=== PATIENT | female | born 1990 | race African-American/Black ===

== ENCOUNTER 2016-08-14 23:03 | Emergency (ER) | payer OTHER ==
[2016-08-14 23:16] VITALS: RESP 18
[2016-08-15 00:30] LABS: Appearance,Urine Clear (Clear); Bilirubin,Urine Negative (Negative); Glucose,Urine (UA) Negative (Negative); Ketones,Urine Negative (Negative); Leukocyte Esterase,Urine Negative (Negative); Nitrite,Urine Negative (Negative); PH, Urine 6.5 (5.0-8.0); Protein,Urine Negative (Negative); Specific Gravity,Urine 1.018 (1.001-1.035); UA Billing (MACRO vs. MICRO) CHEM; Urobilinogen,Urine <2.0 mg/dL (<2.0)
--- NOTE | 2016-08-15 01:07 | ED ---
Abdominal Pain HPI - General Chief Complaint: Abdominal Pain Stated Complaint: Abd Pain Time Seen by Provider: 08/14/16 23:52 Source: patient Mode of arrival: ambulatory Limitations: no limitations - History of Present Illness MD Complaint: abdominal pain Onset/Timin -: days(s) Location: suprapubic Radiation: none Migration to: no migration Severity: mild Quality: cramping Consistency: now resolved, colicky Improves With: nothing Worsens With: nothing Associated Symptoms: denies other symptoms - Related Data Previous Rx's Medication Instructions Recorded Dicyclomine [Bentyl] 20 mg PO QID #15 tablet 08/15/16 Allergies Allergy/AdvReac Type Severity Reaction Status Date / Time No Known Allergies Allergy Verified 08/14/16 23:16 Review of Systems ROS Statement: Those systems with pertinent positive or pertinent negative responses have been documented in the HPI. ROS Other: All systems not noted in ROS Statement are negative. Constitutional: Denies: fever, chills Respiratory: Denies: cough, dyspnea Cardiovascular: Denies: chest pain, palpitations, edema Gastrointestinal: Reports: abdominal pain. Denies: nausea, vomiting, diarrhea, constipation, melena, hematochezia Genitourinary: Denies: dysuria, frequency, hematuria, discharge, dyspareunia Musculoskeletal: Denies: back pain Skin: Denies: rash Past Medical History Past Medical History: No Reported History Additional Past Medical History / Comment(s): CHLAMYDIA History of Any Multi-Drug Resistant Organisms: None Reported Additional Past Surgical History / Comment(s): D & C Past Psychological History: No Psychological Hx Reported Smoking Status: Current every day smoker Past Alcohol Use History: None Reported Past Drug Use History: Marijuana General Exam Limitations: no limitations General appearance: alert, in no apparent distress Eye exam: Present: normal appearance. Absent: scleral icterus, conjunctival injection Respiratory exam: Present: normal lung sounds bilaterally. Absent: respiratory distress, wheezes, rales, rhonchi, stridor Cardiovascular Exam: Present: regular rate, normal rhythm, normal heart sounds. Absent: systolic murmur, diastolic murmur, rubs, gallop GI/Abdominal exam: Present: soft, normal bowel sounds. Absent: distended, tenderness, guarding, rebound, rigid, mass, pulsatile mass, hernia Back exam: Present: normal inspection. Absent: CVA tenderness (R), CVA tenderness (L) Skin exam: Present: warm, dry, intact, normal color. Absent: rash Course Vital Signs 08/14/16 08/15/16 23:14 01:13 Temperature 98.2 F 97.5 F L Pulse Rate 98 71 Respiratory 18 18 Rate Blood Pressure 98/61 99/51 O2 Sat by Pulse 98 98 Oximetry Medical Decision Making - Medical Decision Making The patient's pain has resolved. Given the patient's history of chlamydia recommended having pelvic exam and sending cervical swabs to the laboratory. 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 Also discussed other tests including blood tests and imaging and as the patient has no pain in the exam is completely benign we'll hold off imaging. The patient also requested not having any blood specimens drawn. She states she will return if the pain recurs otherwise she is going to see her doctor. I discussed appropriate follow-up and also return parameters and all questions answered. - Lab Data Lab Results 08/15/16 08/15/16 Range/Units 00:19 00:19 Urine Color Yellow Urine Appearance Clear (Clear) Urine pH 6.5 (5.0-8.0) Ur Specific [place] 1.018 (1.001-1.035) Urine Protein Negative (Negative) Urine Glucose (UA) Negative (Negative) Urine Ketones Negative (Negative) Urine Blood Negative (Negative) Urine Nitrate Negative (Negative) Urine Bilirubin Negative (Negative) Urine Urobilinogen <2.0 (<2.0) mg/dL Ur Leukocyte Esterase Negative (Negative) Urine HCG, Qual Not Detected (Not Detectd) Disposition Clinical Impression: Abdominal pain Disposition: HOME SELF-CARE Condition: Good Instructions: Abdominal Pain (ED) Prescriptions: Dicyclomine [Bentyl] 20 mg PO QID #15 tablet Referrals: Cassy John MD [Primary Care Provider] - 1-2 days
[2016-08-15] MEDS ORDERED: DICYCLOMINE 20 MG TAB PO STA (01:09)
[2016-08-15 01:14] VITALS: BP 99/51; PULSE 71; TEMP 97.5
== END 2016-08-15 01:27 | disposition home or self-care (01) ==
LOC: EC 23:03
DX: R10.9 Unspecified abdominal pain (principal); F17.200 Nicotine dependence, unspecified, uncomplicated
CPT/HCPCS: 81003; 81025; 99284

== ENCOUNTER 2016-08-21 22:48 | Emergency (ER) | payer OTHER ==
[2016-08-21 22:56] VITALS: RESP 16
[2016-08-21] MEDS ORDERED: SODIUM CHLORIDE 0.9% 1,000 ML IV STA (23:13)
--- NOTE | 2016-08-21 23:17 | ED ---
Abdominal Pain HPI - General Chief Complaint: Abdominal Pain Stated Complaint: abd pain Time Seen by Provider: 08/21/16 23:00 Source: patient Mode of arrival: ambulatory Limitations: no limitations - History of Present Illness Initial Comments: 25-year-old female patient presents to emergency department today for a 5 day history of lower abdominal pain. Patient states that the pain is intermittent, and seems to come on more at the end of her work day and lasts for a few hours after. Patient describes the pain as sharp in nature. Patient ate she is nauseated with this but has not had any vomiting. Patient states she has had 3- 4 soft bowel movements daily for the last 4 days. Patient denies any chest pain , back pain, shortness of breath, dizziness, or weakness. He denies any fever, chills, hematuria, dysuria, urgency or frequency in urination. She denies any dark, bloody, or black stools. As any vaginal bleeding, discharge, or odor. Denies any sick contacts. - Related Data Home Medications Medication Instructions Recorded Confirmed Medroxyprogesterone Acetate 150 mg IM Q90D 08/21/16 08/21/16 [Depo-Provera] Allergies Allergy/AdvReac Type Severity Reaction Status Date / Time No Known Allergies Allergy Verified 08/21/16 23:18 Review of Systems ROS Statement: Those systems with pertinent positive or pertinent negative responses have been documented in the HPI. ROS Other: All systems not noted in ROS Statement are negative. Past Medical History Past Medical History: No Reported History Additional Past Medical History / Comment(s): CHLAMYDIA History of Any Multi-Drug Resistant Organisms: None Reported Additional Past Surgical History / Comment(s): D & C x 2 Past Psychological History: No Psychological Hx Reported Smoking Status: Current every day smoker Past Alcohol Use History: Occasional Past Drug Use History: Marijuana General Exam Limitations: no limitations General appearance: alert, in no apparent distress Head exam: Present: atraumatic, normocephalic, normal inspection Eye exam: Present: normal appearance, PERRL, EOMI. Absent: scleral icterus, conjunctival injection, periorbital swelling ENT exam: Present: normal exam, mucous membranes moist Neck exam: Present: normal inspection. Absent: tenderness, meningismus, lymphadenopathy Respiratory exam: Present: normal lung sounds bilaterally. Absent: respiratory distress, wheezes, rales, rhonchi, stridor Cardiovascular Exam: Present: regular rate, normal rhythm, normal heart sounds. Absent: systolic murmur, diastolic murmur, rubs, gallop, clicks GI/Abdominal exam: Present: soft, tenderness (Mildly tender over the lower abdomen, and mid epigastric area.), normal bowel sounds. Absent: distended, guarding, rebound, rigid, organomegaly, mass Back exam: Present: normal inspection. Absent: CVA tenderness (R), CVA tenderness (L) Neurological exam: Present: alert, oriented X3, CN II-XII intact Psychiatric exam: Present: normal affect, normal mood Skin exam: Present: warm, dry, intact, normal color. Absent: rash Course Vital Signs 08/21/16 22:52 Temperature 98.3 F Pulse Rate 84 Respiratory 16 Rate Blood Pressure 111/56 O2 Sat by Pulse 93 L Oximetry Medical Decision Making - Medical Decision Making 5-year-old female patient presented to emergency department for complaints of sharp lower abdominal pain. Blood work and urinalysis was performed which did not show any acute abnormalities. KUB of the abdomen revealed an obstructive bowel gas pattern and no acute abnormalities. Did inform patient that these tests were negative at this time, and did offer a pelvic examination for further evaluation and patient refused. Patient was educated by this is important and that it may provide answers for her pain. Again she declined this exam. Patient was also offered nausea and pain medications which she refused as well. During her visit here she also refused to keep the IV in place. Did discuss with patient that she should follow up as soon as possible with her family doctor for further evaluation. Patient understands that she can return for any worsening, new, or concerning symptoms. - Lab Data Result diagrams: 08/21/16 23:40 08/21/16 23:40 Lab Results 08/21/16 08/21/16 08/21/16 Range/Units 23:40 23:40 23:40 WBC 5.3 (3.8-10.6) k/uL RBC 4.72 (3.80-5.40) m/uL Hgb 14.1 (11.4-16.0) gm/dL Hct 42.3 (34.0-46.0) % MCV 89.6 (80.0-100.0) fL MCH 29.9 (25.0-35.0) pg MCHC 33.4 (31.0-37.0) g/dL RDW 13.7 (11.5-15.5) % Plt Count 198 (150-450) k/uL Neutrophils % 50 % Lymphocytes % 37 % Monocytes % 8 % Eosinophils % 3 % Basophils % 1 % Neutrophils # 2.6 (1.3-7.7) k/uL Lymphocytes # 2.0 (1.0-4.8) k/uL Monocytes # 0.4 (0-1.0) k/uL Eosinophils # 0.1 (0-0.7) k/uL Basophils # 0.0 (0-0.2) k/uL Sodium 138 (137-145) mmol/L Potassium 4.2 (3.5-5.1) mmol/L Chloride 102 (98-107) mmol/L Carbon Dioxide 26 (22-30) mmol/L Anion Gap 10 mmol/L BUN 13 (7-17) mg/dL Creatinine 0.85 (0.52-1.04) mg/dL Est GFR (MDRD) Af Amer >60 (>60 ml/min/1.73 sqM) Est GFR (MDRD) Non-Af >60 (>60 ml/min/1.73 sqM) Glucose 78 (74-99) mg/dL Calcium 9.5 (8.4-10.2) mg/dL Total Bilirubin 0.6 (0.2-1.3) mg/dL AST 17 (14-36) U/L ALT 26 (9-52) U/L Alkaline Phosphatase 55 (38-126) U/L Total Protein 7.2 (6.3-8.2) g/dL Albumin 4.1 (3.5-5.0) g/dL Amylase 101 (30-110) U/L Lipase 146 (23-300) U/L Urine Color Yellow Urine Appearance Clear (Clear) Urine pH 7.5 (5.0-8.0) Ur Specific [place] 1.020 (1.001-1.035) Urine Protein Trace H (Negative) Urine Glucose (UA) Negative (Negative) Urine Ketones Negative (Negative) Urine Blood Negative (Negative) Urine Nitrite Negative (Negative) Urine Bilirubin Negative (Negative) Urine Urobilinogen 2.0 (<2.0) mg/dL Ur Leukocyte Esterase Negative (Negative) Urine HCG, Qual (Not Detectd) 03/15/17 Range/Units 23:40 WBC (3.8-10.6) k/uL RBC (3.80-5.40) m/uL Hgb (11.4-16.0) gm/dL Hct (34.0-46.0) % MCV (80.0-100.0) fL MCH (25.0-35.0) pg MCHC (31.0-37.0) g/dL RDW (11.5-15.5) % Plt Count (150-450) k/uL Neutrophils % % Lymphocytes % % Monocytes % % Eosinophils % % Basophils % % Neutrophils # (1.3-7.7) k/uL Lymphocytes # (1.0-4.8) k/uL Monocytes # (0-1.0) k/uL Eosinophils # (0-0.7) k/uL Basophils # (0-0.2) k/uL Sodium (137-145) mmol/L Potassium (3.5-5.1) mmol/L Chloride (98-107) mmol/L Carbon Dioxide (22-30) mmol/L Anion Gap mmol/L BUN (7-17) mg/dL Creatinine (0.52-1.04) mg/dL Est GFR (MDRD) Af Amer (>60 ml/min/1.73 sqM) Est GFR (MDRD) Non-Af (>60 ml/min/1.73 sqM) Glucose (74-99) mg/dL Calcium (8.4-10.2) mg/dL Total Bilirubin (0.2-1.3) mg/dL AST (14-36) U/L ALT (9-52) U/L Alkaline Phosphatase (38-126) U/L Total Protein (6.3-8.2) g/dL Albumin (3.5-5.0) g/dL Amylase (30-110) U/L Lipase (23-300) U/L Urine Color Urine Appearance (Clear) Urine pH (5.0-8.0) Ur Specific [place] (1.001-1.035) Urine Protein (Negative) Urine Glucose (UA) (Negative) Urine Ketones (Negative) Urine Blood (Negative) Urine Nitrite (Negative) Urine Bilirubin (Negative) Urine Urobilinogen (<2.0) mg/dL Ur Leukocyte Esterase (Negative) Urine HCG, Qual Not Detected (Not Detectd) Disposition Clinical Impression: Abdominal pain Disposition: HOME SELF-CARE Condition: Stable Instructions: Abdominal Pain (ED) Additional Instructions: Follow-up with primary care provider as soon as possible for further evaluation. Return to emergency department for any new, worsening, or concerning symptoms. Referrals: Cassy John MD [Primary Care Provider] - 1-2 days Time of Disposition: 00:30
[2016-08-21 23:49] LABS: Appearance,Urine Clear (Clear); Basophils % (A) 1 %; Bilirubin,Urine Negative (Negative); CH 30.2; CHCM 33.8; Eosinophils # (A) 0.1 k/uL (0-0.7); Eosinophils % (A) 3 %; Glucose,Urine (UA) Negative (Negative); HCT 42.3 % (34.0-46.0); HDW 2.29; HGB 14.1 gm/dL (11.4-16.0); Ketones,Urine Negative (Negative); Leukocyte Esterase,Urine Negative (Negative); Luc # (Auto) 0.13; Luc % (Auto) 3; Lymphocytes % (A) 37 %; MCH 29.9 pg (25.0-35.0); MCHC 33.4 g/dL (31.0-37.0); MCV 89.6 fL (80.0-100.0); Mean Platelet Volume 7.3; Monocytes # (A) 0.4 k/uL (0-1.0); Monocytes % (A) 8 %; Neutrophils # (A) 2.6 k/uL (1.3-7.7); Neutrophils % (A) 50 %; Nitrite,Urine Negative (Negative); PH, Urine 7.5 (5.0-8.0); Protein,Urine Trace (Negative); RBC 4.72 m/uL (3.80-5.40); RDW 13.7 % (11.5-15.5); UA Billing (MACRO vs. MICRO) CHEM; WBC 5.3 k/uL (3.8-10.6); WBC (Perox) 5.08
[2016-08-21 23:57] LABS: ALT 26 U/L (9-52); AST 17 U/L (14-36); Alkaline Phosphatase 55 U/L (38-126); Amylase 101 U/L (30-110); Anion Gap 10 mmol/L; Blood Urea Nitrogen 13 mg/dL (7-17); Calcium 9.5 mg/dL (8.4-10.2); Carbon Dioxide 26 mmol/L (22-30); Chloride 102 mmol/L (98-107); Glucose 78 mg/dL (74-99); Non-African American GFR(MDRD) >60 (>60 ml/min/1.73 sqM); Potassium 4.2 mmol/L (3.5-5.1); Sodium 138 mmol/L (137-145); Total Bilirubin 0.6 mg/dL (0.2-1.3); Total Protein 7.2 g/dL (6.3-8.2)
[2016-08-22 00:46] VITALS: BP 100/59; PULSE 77; TEMP 98.2
--- NOTE | 2016-08-22 00:54 | XR ---
EXAM: XR Abdomen, 1 View. CLINICAL HISTORY: Reason: abdominal pain TECHNIQUE: Frontal supine view of the abdomen/pelvis. COMPARISON: Abdominal radiographs 05/21/16 FINDINGS: Lower thorax: No free air beneath the diaphragm. Imaged lung bases are clear. Gastrointestinal tract: No dilated, air-filled loops of bowel to suggest obstruction. Bones/joints: No acute fracture. IMPRESSION: Nonobstructive bowel gas pattern. No free air.
== END 2016-08-22 00:55 | disposition home or self-care (01) ==
LOC: EC 22:48
DX: R10.30 Lower abdominal pain, unspecified (principal); R10.13 Epigastric pain; R11.0 Nausea; F17.200 Nicotine dependence, unspecified, uncomplicated; Z79.3 Long term (current) use of hormonal contraceptives
CPT/HCPCS: 36415; 74000; 80053; 81003; 81025; 82150; 83690; 85025; 99284

== ENCOUNTER 2017-12-28 17:37 | Emergency (ER) | payer OTHER ==
[2017-12-28 17:47] VITALS: RESP 18
[2017-12-28] MEDS ORDERED: SODIUM CHLORIDE 0.9% 1,000 ML IV STA (18:01)
--- NOTE | 2017-12-28 18:20 | ED ---
General Adult HPI - General Chief complaint: Abdominal Pain Stated complaint: abd pain, 6wks preg Time Seen by Provider: 12/28/17 17:50 Source: patient, RN notes reviewed Mode of arrival: ambulatory Limitations: no limitations - History of Present Illness Initial comments: 27-year-old female presents to the emergency department for a chief complaint of abdominal pain times one week. Patient states the pain is constant and in the lower abdomen. Patient states the pain is worse on the left side. Patient is 6 weeks . She has not had an ultrasound. Patient denies any vaginal bleeding or discharge. Patient denies any nausea or vomiting. Patient last had a bowel movement today and it was of normal consistency. Patient denies any fevers or chills at home. Patient denies any concerns for sexually transmitted diseases. Patient has no other complaints at this time including shortness of breath, chest pain, abdominal pain, nausea or vomiting, headache, or visual changes. - Related Data Home Medications Medication Instructions Recorded Confirmed Medroxyprogesterone Acetate 150 mg IM Q90D 08/21/16 08/21/16 [Depo-Provera] Previous Rx's Medication Instructions Recorded Cephalexin [Keflex] 500 mg PO Q8HR 10 Days cap 12/28/17 Allergies Allergy/AdvReac Type Severity Reaction Status Date / Time No Known Allergies Allergy Verified 12/28/17 17:43 Review of Systems ROS Statement: Those systems with pertinent positive or pertinent negative responses have been documented in the HPI. ROS Other: All systems not noted in ROS Statement are negative. Past Medical History Past Medical History: No Reported History Additional Past Medical History / Comment(s): CHLAMYDIA History of Any Multi-Drug Resistant Organisms: None Reported Additional Past Surgical History / Comment(s): D & C x 2 Past Psychological History: No Psychological Hx Reported Smoking Status: Current some day smoker Past Alcohol Use History: None Reported, Occasional Past Drug Use History: None Reported General Exam Limitations: no limitations General appearance: alert, in no apparent distress Head exam: Present: atraumatic, normocephalic, normal inspection Eye exam: Present: normal appearance. Absent: scleral icterus, conjunctival injection Neck exam: Present: normal inspection, full ROM. Absent: tenderness, meningismus, lymphadenopathy Respiratory exam: Present: normal lung sounds bilaterally. Absent: respiratory distress, wheezes, rales, rhonchi, stridor Cardiovascular Exam: Present: regular rate, normal rhythm, normal heart sounds. Absent: systolic murmur, diastolic murmur, rubs, gallop, clicks GI/Abdominal exam: Present: soft, tenderness (mild LLQ tenderness as well as RLQ. worse on no tenderness epigastric, RUQ, or LUQ tenderness), normal bowel sounds. Absent: distended, guarding, rebound, rigid Course Vital Signs 12/28/17 12/28/17 17:43 20:03 Temperature 97.8 F Pulse Rate 77 72 Respiratory 18 18 Rate Blood Pressure 93/56 96/53 O2 Sat by Pulse 99 100 Oximetry Medical Decision Making - Medical Decision Making 27-year-old female presents to the emergency department for a chief complaint of lower abdominal pain times one week. Patient states she is 6 weeks . Patient has not had an intrauterine ultrasound. Patient last had a bowel movement earlier today. No vaginal discharge or bleeding. No fevers or chills at home. On exam patient has mild left and right lower quadrant tenderness. No suprapubic tenderness. No tenderness in the upper quadrants of the abdomen. No CVA tenderness. Labs within normal limits. UA shows rare bacteria patient will be treated with Keflex and urine will be cultured. Ultrasound shows viable intrauterine . The ultrasound gestational age is 6 weeks and 3 days. No Acute process seen. There is a presence of the subchorionic bleed versus implantation above gestational sac. This finding was discussed with the patient. On exam patient is feeling much better. She will be sent home on Keflex and Tylenol as well as repeat beta hCG in one to 2 days. Aware to return to the emergency Department if she has any worsening symptoms or bleeding. She will follow-up in one to 2 days. - Lab Data Result diagrams: 12/28/17 18:40 12/28/17 18:40 Lab Results 12/28/17 12/28/17 12/28/17 Range/Units 18:40 18:40 18:40 WBC 6.1 (3.8-10.6) k/uL RBC 4.66 (3.80-5.40) m/uL Hgb 13.5 (11.4-16.0) gm/dL Hct 40.1 (34.0-46.0) % MCV 86.0 (80.0-100.0) fL MCH 29.0 (25.0-35.0) pg MCHC 33.7 (31.0-37.0) g/dL RDW 13.3 (11.5-15.5) % Plt Count 223 (150-450) k/uL Neutrophils % 52 % Lymphocytes % 35 % Monocytes % 8 % Eosinophils % 3 % Basophils % 0 % Neutrophils # 3.2 (1.3-7.7) k/uL Lymphocytes # 2.2 (1.0-4.8) k/uL Monocytes # 0.5 (0-1.0) k/uL Eosinophils # 0.2 (0-0.7) k/uL Basophils # 0.0 (0-0.2) k/uL Sodium 135 L (137-145) mmol/L Potassium 4.1 (3.5-5.1) mmol/L Chloride 106 (98-107) mmol/L Carbon Dioxide 22 (22-30) mmol/L Anion Gap 7 mmol/L BUN 10 (7-17) mg/dL Creatinine 0.71 (0.52-1.04) mg/dL Est GFR (CKD-EPI)AfAm >90 (>60 ml/min/1.73 sqM) Est GFR (CKD-EPI)NonAf >90 (>60 ml/min/1.73 sqM) Glucose 79 (74-99) mg/dL Calcium 9.0 (8.4-10.2) mg/dL Total Bilirubin <0.1 L (0.2-1.3) mg/dL AST 15 (14-36) U/L ALT 21 (9-52) U/L Alkaline Phosphatase 63 (38-126) U/L Total Protein 6.6 (6.3-8.2) g/dL Albumin 3.9 (3.5-5.0) g/dL Amylase 86 (30-110) U/L Lipase 93 (23-300) U/L HCG, Quant 12588.5 mIU/mL Urine Color Light Yellow Urine Appearance Cloudy H (Clear) Urine pH 6.5 (5.0-8.0) Ur Specific [place] 1.013 (1.001-1.035) Urine Protein Negative (Negative) Urine Glucose (UA) Negative (Negative) Urine Ketones Negative (Negative) Urine Blood Negative (Negative) Urine Nitrite Negative (Negative) Urine Bilirubin Negative (Negative) Urine Urobilinogen <2.0 (<2.0) mg/dL Ur Leukocyte Esterase Negative (Negative) Urine RBC <1 (0-5) /hpf Urine WBC 2 (0-5) /hpf Ur Squamous Epith Cells 22 H (0-4) /hpf Urine Bacteria Rare H (None) /hpf Urine Mucus Rare H (None) /hpf Disposition Clinical Impression: Abdominal pain Disposition: HOME SELF-CARE Condition: Good Instructions: Abdominal Pain in (ED) Additional Instructions: Please take Keflex as directed. Please begin taking vitamins and Tylenol for pain. Repeat blood work in 2 days. Follow-up with OBGYN in 1-2 days. Prescriptions: Cephalexin [Keflex] 500 mg PO Q8HR 10 Days cap Is patient prescribed a controlled substance at d/c from ED?: No Referrals: Cassy John MD [Primary Care Provider] - 1-2 days Time of Disposition: 20:58
[2017-12-28] MEDS ORDERED: ACETAMINOPHEN TAB 500 MG TAB PO STA (18:49)
[2017-12-28 18:55] LABS: Appearance,Urine Cloudy (Clear); Bacteria,Urine Rare /hpf; Bilirubin,Urine Negative (Negative); Blood,Urine Negative (Negative); Color,Urine Light Yellow; Glucose,Urine (UA) Negative (Negative); Ketones,Urine Negative (Negative); Leukocyte Esterase,Urine Negative (Negative); Mucus,Urine Rare /hpf; Nitrite,Urine Negative (Negative); PH, Urine 6.5 (5.0-8.0); Protein,Urine Negative (Negative); RBC,Urine <1 /hpf (0-5); Specific Gravity,Urine 1.013 (1.001-1.035); Squamous Epithelial Cell,Urine 22 /hpf (0-4); Urobilinogen,Urine <2.0 mg/dL (<2.0); WBC,Urine 2 /hpf (0-5)
[2017-12-28 19:03] LABS: ALT 21 U/L (9-52); AST 15 U/L (14-36); Albumin 3.9 g/dL (3.5-5.0); Alkaline Phosphatase 63 U/L (38-126); Amylase 86 U/L (30-110); Anion Gap 7 mmol/L; Blood Urea Nitrogen 10 mg/dL (7-17); Carbon Dioxide 22 mmol/L (22-30); Chloride 106 mmol/L (98-107); Glucose 79 mg/dL (74-99); Lipase 93 U/L (23-300); Potassium 4.1 mmol/L (3.5-5.1); Sodium 135 mmol/L (137-145); Total Bilirubin <0.1 mg/dL (0.2-1.3); Total Protein 6.6 g/dL (6.3-8.2)
[2017-12-28 19:19] LABS: Basophils % (A) 0 %; Eosinophils # (A) 0.2 k/uL (0-0.7); Eosinophils % (A) 3 %; HCT 40.1 % (34.0-46.0); HGB 13.5 gm/dL (11.4-16.0); Lymphocytes # (A) 2.2 k/uL (1.0-4.8); Lymphocytes % (A) 35 %; MCHC 33.7 g/dL (31.0-37.0); Mean Platelet Volume 7.3; Monocytes # (A) 0.5 k/uL (0-1.0); Monocytes % (A) 8 %; Neutrophils # (A) 3.2 k/uL (1.3-7.7); Neutrophils % (A) 52 %; Platelet Count 223 k/uL (150-450); RBC 4.66 m/uL (3.80-5.40); RDW 13.3 % (11.5-15.5); WBC 6.1 k/uL (3.8-10.6)
--- NOTE | 2017-12-28 19:52 | US ---
EXAMINATION TYPE: Transabdominal DATE OF EXAM: 09/09/17 COMPARISON: NONE CLINICAL HISTORY: Pain. EXAM PERFORMED: Transabdominal (TA) EXAM MEASUREMENTS: GESTATIONAL AGE / DATING Physician Established: (6 weeks/3 days) EDC: 08/20/2018 Dates by LMP: (6 weeks/3 days) EDC: 08/20/2018 Dates by First Scan: No previous this is first scan Dates by Current Scan for: (5 weeks/6 days) EDC: 08/24/2018 MATERNAL ANATOMY Uterus: 11.0 x 6.6 x 7.3 cm; Anteverted, cervix wnl (3.5 cm) Right Ovary: 2.9 x 1.6 x 2.0 cm; Appears wnl slightly obscured by bowel gas Left Ovary: 2.3 x 1.8 x 2.3 cm; Appears wnl slightly obscured by bowel gas Post CDS / Adnexa: Appears wnl Presence of free fluid: No Presence of corpus luteal cyst: Not seen Presence of subchorionic bleed: bleed versus implantation above gest sac measuring 0.6 x 0.4 x 0.8 cm GESTATION / SURVEY CRL: 0.3 cm (5 weeks/6 days) Yolk Sac (normal less than 6mm): 2 mm Heart Rate: 106 bpm Rhythm: Normal IUP: Viable IUP Date of LMP: 11/09/2017 Beta HcG (if available): Not available at this time IMPRESSION: The ultrasound gestational age is 6 weeks and 3 days. No complicating process seen.
[2017-12-28 20:20] LABS: HCG,Quantitative Serum 76104.5 mIU/mL
[2017-12-28 21:33] VITALS: BP 97/54; PULSE 71; TEMP 98.1
== END 2017-12-28 21:33 | disposition home or self-care (01) ==
LOC: EC 17:37
DX: O99.89 Other specified diseases and conditions complicating pregnancy, childbirth and the puerperium (principal); R10.32 Left lower quadrant pain; O98.811 Other maternal infectious and parasitic diseases complicating pregnancy, first trimester; R82.71 Bacteriuria; O99.331 Smoking (tobacco) complicating pregnancy, first trimester; F17.200 Nicotine dependence, unspecified, uncomplicated; Z79.3 Long term (current) use of hormonal contraceptives; Z3A.01 Less than 8 weeks gestation of pregnancy
CPT/HCPCS: 36415; 76801; 80053; 81001; 82150; 83690; 84702; 85025; 87086; 96360; 99284

== ENCOUNTER → 2018-01-01 | Outpatient (CLI) | payer OTHER | END | disposition home or self-care (01) | LOC: LABWHC1 11:28 | PROVIDERS: ATTEND Physician Assistant Medical | DX: O99.89 Other specified diseases and conditions complicating pregnancy, childbirth and the puerperium (principal); R10.9 Unspecified abdominal pain; Z3A.00 Weeks of gestation of pregnancy not specified | CPT/HCPCS: 36415; 84702 ==

== ENCOUNTER → 2018-01-01 | Outpatient (CLI) | payer OTHER ==
--- NOTE | 2018-01-01 13:33 | US ---
EXAMINATION TYPE: Transabdominal DATE OF EXAM: 09/09/17 COMPARISON: 12/28/2017 CLINICAL HISTORY: Z36 CONFIRM DATES. EXAM PERFORMED: Transvaginal (TV) and Transabdominal (TA) supplemental tv for better visualization pole EXAM MEASUREMENTS: GESTATIONAL AGE / DATING Physician Established: (7 weeks/0 days) EDC: 08/20/2018 Dates by LMP: (7 weeks/0 days) EDC: 08/20/2018 Dates by First Scan: (6 weeks/3 days) EDC: 08/24/2018 Dates by Current Scan for: (7 weeks/0 days) EDC: 08/20/2018 MATERNAL ANATOMY Uterus: 9.9 x 5.9 x 7.4 cm Right Ovary: 2.1 x 2.0 x 1.6 Left Ovary: 2.5 x 1.5 x 1.6 Post CDS / Adnexa: wnl Presence of free fluid: no Presence of corpus luteal cyst: no Presence of subchorionic bleed: 0.6 cm smaller than 1 week ago GESTATION / SURVEY CRL: 0.7 (6weeks/4 days) MSD: 2.7 7weeks/3 days) Yolk Sac (normal less than 6mm): 2mm Heart Rate: 136 bpm Rhythm: Normal IUP: Viable IUP Date of LMP: 11/13/2017 Beta HcG (if available): na IMPRESSION: Single viable intrauterine .
== END | disposition home or self-care (01) ==
LOC: RADUSWWP 12:36
PROVIDERS: ATTEND Obstetrics & Gynecology
DX: Z36.9 Encounter for antenatal screening, unspecified (principal); Z3A.01 Less than 8 weeks gestation of pregnancy
CPT/HCPCS: 76801; 76817

== ENCOUNTER 2018-03-03 17:36 | Emergency (ER) | payer OTHER ==
[2018-03-03 17:44] VITALS: RESP 18; TEMP 98.2
[2018-03-03] MEDS ORDERED: SODIUM CHLORIDE 0.9% 1,000 ML IV STA (18:20)
--- NOTE | 2018-03-03 18:27 | ED ---
Abdominal Pain HPI - General Chief Complaint: Abdominal Pain Stated Complaint: abd pain, Time Seen by Provider: 03/03/18 18:07 Source: patient Mode of arrival: ambulatory Limitations: no limitations - History of Present Illness Initial Comments: 27-year-old female patient presents to the emergency department today for evaluation of right-sided flank pain and lower abdominal cramping. She states that symptoms started 2-3 days ago. Patient states she is 15 weeks . She follows outpatient with Dr. Burciaga. Patient is A2 with miscarriages at 8 weeks and 13 weeks. Patient denies any current vaginal bleeding or discharge. Denies any hematuria, dysuria, urinary frequency, urinary urgency. She denies any fevers or chills. Denies any history of flank pain, kidney stones, or frequent urinary tract infections. Patient reports she has also been having frequent nosebleeds over the last couple of months. She denies any trauma to the nose. Patient denies any recent shortness breath, chest pain, nausea, vomiting, diarrhea, constipation, numbness, tingling, dizziness, weakness, headache, visual changes, or any other complaints. - Related Data Home Medications Medication Instructions Recorded Confirmed Wnu-Bjsg-Idsep Acid 1 cap PO DAILY 03/03/18 03/03/18 [-U Capsule (formulary)] Allergies Allergy/AdvReac Type Severity Reaction Status Date / Time cephalexin [From Keflex] Allergy Itching Verified 03/03/18 17:52 Review of Systems ROS Statement: Those systems with pertinent positive or pertinent negative responses have been documented in the HPI. ROS Other: All systems not noted in ROS Statement are negative. Past Medical History Past Medical History: No Reported History Additional Past Medical History / Comment(s): CHLAMYDIA History of Any Multi-Drug Resistant Organisms: None Reported Additional Past Surgical History / Comment(s): D & C x 2 Past Psychological History: No Psychological Hx Reported Smoking Status: Current some day smoker Past Alcohol Use History: None Reported Past Drug Use History: None Reported General Exam Limitations: no limitations General appearance: alert, in no apparent distress, other (This is a well- developed, well-nourished adult female patient in no acute distress. Vital signs upon presentation are temperature 98.2F and pulse 94, respirations 18, blood pressure 97/59, pulse ox 99% on room air.) Eye exam: Present: normal appearance, PERRL, EOMI. Absent: scleral icterus, conjunctival injection, periorbital swelling ENT exam: Present: normal exam, normal oropharynx, mucous membranes moist Respiratory exam: Present: normal lung sounds bilaterally. Absent: respiratory distress, wheezes, rales, rhonchi, stridor Cardiovascular Exam: Present: regular rate, normal rhythm, normal heart sounds. Absent: systolic murmur, diastolic murmur, rubs, gallop, clicks GI/Abdominal exam: Present: soft, normal bowel sounds. Absent: distended, tenderness, guarding, rebound, rigid Back exam: Present: normal inspection. Absent: CVA tenderness (R), CVA tenderness (L) Neurological exam: Present: alert, oriented X3, CN II-XII intact Psychiatric exam: Present: normal affect, normal mood Skin exam: Present: warm, dry, intact, normal color. Absent: rash Course Vital Signs 03/03/18 03/03/18 17:38 20:44 Temperature 98.2 F Pulse Rate 94 75 Respiratory 18 18 Rate Blood Pressure 97/59 118/56 O2 Sat by Pulse 99 100 Oximetry Medical Decision Making - Medical Decision Making 27 year-old female patient presented to the emergency department today with complaints of lower abdominal cramping and right-sided back pain. Physical examination was relatively unremarkable. There is no abdominal tenderness. No CVA tenderness. Labs reviewed and were unremarkable. Urinalysis did have some white blood cells however it was contaminated specimen we did send this for culture. Ultrasound of the fetus was obtained and showed no acute abnormalities. Heart rate was 149. Did discuss findings and results with the patient. We did discuss a musculoskeletal cause of her back pain, patient did report that pain worsened with bending and lifting. 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 Return parameters were discussed in detail. She verbalizes understanding and agree with this plan. - Lab Data Result diagrams: 03/03/18 18:42 03/03/18 18:42 Lab Results 03/03/18 03/03/18 03/03/18 Range/Units 18:42 18:42 18:42 WBC 6.9 (3.8-10.6) k/uL RBC 3.83 (3.80-5.40) m/uL Hgb 11.3 L (11.4-16.0) gm/dL Hct 33.6 L (34.0-46.0) % MCV 87.6 (80.0-100.0) fL MCH 29.4 (25.0-35.0) pg MCHC 33.5 (31.0-37.0) g/dL RDW 13.7 (11.5-15.5) % Plt Count 207 (150-450) k/uL Neutrophils % 67 % Lymphocytes % 22 % Monocytes % 6 % Eosinophils % 4 % Basophils % 0 % Neutrophils # 4.6 (1.3-7.7) k/uL Lymphocytes # 1.5 (1.0-4.8) k/uL Monocytes # 0.4 (0-1.0) k/uL Eosinophils # 0.2 (0-0.7) k/uL Basophils # 0.0 (0-0.2) k/uL PT (9.0-12.0) sec INR (<1.2) APTT (22.0-30.0) sec Sodium 138 (137-145) mmol/L Potassium 4.1 (3.5-5.1) mmol/L Chloride 106 (98-107) mmol/L Carbon Dioxide 23 (22-30) mmol/L Anion Gap 9 mmol/L BUN 9 (7-17) mg/dL Creatinine 0.70 (0.52-1.04) mg/dL Est GFR (CKD-EPI)AfAm >90 (>60 ml/min/1.73 sqM) Est GFR (CKD-EPI)NonAf >90 (>60 ml/min/1.73 sqM) Glucose 75 (74-99) mg/dL Calcium 9.2 (8.4-10.2) mg/dL Total Bilirubin 0.1 L (0.2-1.3) mg/dL AST 64 H (14-36) U/L ALT 72 H (9-52) U/L Alkaline Phosphatase 56 (38-126) U/L Total Protein 7.0 (6.3-8.2) g/dL Albumin 3.8 (3.5-5.0) g/dL Amylase 77 (30-110) U/L Lipase 67 (23-300) U/L Urine Color Yellow Urine Appearance Turbid H (Clear) Urine pH 7.5 (5.0-8.0) Ur Specific Williamson 1.018 (1.001-1.035) Urine Protein Trace H (Negative) Urine Glucose (UA) Negative (Negative) Urine Ketones Negative (Negative) Urine Blood Negative (Negative) Urine Nitrite Negative (Negative) Urine Bilirubin Negative (Negative) Urine Urobilinogen <2.0 (<2.0) mg/dL Ur Leukocyte Esterase Negative (Negative) Urine WBC 7 H (0-5) /hpf Ur Squamous Epith Cells 14 H (0-4) /hpf Amorphous Sediment Few H (None) /hpf Urine Mucus Rare H (None) /hpf 03/03/18 Range/Units 18:42 WBC (3.8-10.6) k/uL RBC (3.80-5.40) m/uL Hgb (11.4-16.0) gm/dL Hct (34.0-46.0) % MCV (80.0-100.0) fL MCH (25.0-35.0) pg MCHC (31.0-37.0) g/dL RDW (11.5-15.5) % Plt Count (150-450) k/uL Neutrophils % % Lymphocytes % % Monocytes % % Eosinophils % % Basophils % % Neutrophils # (1.3-7.7) k/uL Lymphocytes # (1.0-4.8) k/uL Monocytes # (0-1.0) k/uL Eosinophils # (0-0.7) k/uL Basophils # (0-0.2) k/uL PT 9.5 (9.0-12.0) sec INR 1.0 (<1.2) APTT 26.0 (22.0-30.0) sec Sodium (137-145) mmol/L Potassium (3.5-5.1) mmol/L Chloride (98-107) mmol/L Carbon Dioxide (22-30) mmol/L Anion Gap mmol/L BUN (7-17) mg/dL Creatinine (0.52-1.04) mg/dL Est GFR (CKD-EPI)AfAm (>60 ml/min/1.73 sqM) Est GFR (CKD-EPI)NonAf (>60 ml/min/1.73 sqM) Glucose (74-99) mg/dL Calcium (8.4-10.2) mg/dL Total Bilirubin (0.2-1.3) mg/dL AST (14-36) U/L ALT (9-52) U/L Alkaline Phosphatase (38-126) U/L Total Protein (6.3-8.2) g/dL Albumin (3.5-5.0) g/dL Amylase (30-110) U/L Lipase (23-300) U/L Urine Color Urine Appearance (Clear) Urine pH (5.0-8.0) Ur Specific Williamson (1.001-1.035) Urine Protein (Negative) Urine Glucose (UA) (Negative) Urine Ketones (Negative) Urine Blood (Negative) Urine Nitrite (Negative) Urine Bilirubin (Negative) Urine Urobilinogen (<2.0) mg/dL Ur Leukocyte Esterase (Negative) Urine WBC (0-5) /hpf Ur Squamous Epith Cells (0-4) /hpf Amorphous Sediment (None) /hpf Urine Mucus (None) /hpf - Radiology Data Radiology results: report reviewed Ultrasound of the fetus was obtained. Report was reviewed in its entirety. Impression by Dr. Eugene Faith shows viable intrauterine measuring 16 weeks 1 day with an estimated date of delivery at 08/17/2018. Heart rate 149. Disposition Clinical Impression: Abdominal pain in , Back pain Disposition: HOME SELF-CARE Condition: Good Instructions: Abdominal Pain in (ED) Additional Instructions: Increase fluids. Apply icy hot to the painful areas. Use heating pad 20 minutes at a time at least 4 times daily. Do not take the ibuprofen prescribed by her dentist, it is safe to take Tylenol. Follow-up with her primary care physician for recheck in 1-2 days. Return here immediately for any new, worsening, or concerning symptoms. Is patient prescribed a controlled substance at d/c from ED?: No Referrals: Cassy John MD [Primary Care Provider] - 1-2 days Time of Disposition: 21:10
[2018-03-03 19:23] LABS: Basophils % (A) 0 %; Eosinophils # (A) 0.2 k/uL (0-0.7); Eosinophils % (A) 4 %; HCT 33.6 % (34.0-46.0); HGB 11.3 gm/dL (11.4-16.0); Lymphocytes # (A) 1.5 k/uL (1.0-4.8); Lymphocytes % (A) 22 %; MCH 29.4 pg (25.0-35.0); MCHC 33.5 g/dL (31.0-37.0); MCV 87.6 fL (80.0-100.0); Mean Platelet Volume 7.8; Monocytes # (A) 0.4 k/uL (0-1.0); Monocytes % (A) 6 %; Neutrophils # (A) 4.6 k/uL (1.3-7.7); Neutrophils % (A) 67 %; Platelet Count 207 k/uL (150-450); RBC 3.83 m/uL (3.80-5.40); RDW 13.7 % (11.5-15.5); WBC 6.9 k/uL (3.8-10.6)
[2018-03-03 19:28] LABS: ALT 72 U/L (9-52); AST 64 U/L (14-36); Albumin 3.8 g/dL (3.5-5.0); Alkaline Phosphatase 56 U/L (38-126); Amylase 77 U/L (30-110); Anion Gap 9 mmol/L; Blood Urea Nitrogen 9 mg/dL (7-17); Calcium 9.2 mg/dL (8.4-10.2); Carbon Dioxide 23 mmol/L (22-30); Chloride 106 mmol/L (98-107); Glucose 75 mg/dL (74-99); Lipase 67 U/L (23-300); Potassium 4.1 mmol/L (3.5-5.1); Prothrombin Time 9.5 sec (9.0-12.0); Sodium 138 mmol/L (137-145); Total Bilirubin 0.1 mg/dL (0.2-1.3)
[2018-03-03 19:40] LABS: Amorphous Sediment,Urine Few /hpf; Appearance,Urine Turbid (Clear); Bilirubin,Urine Negative (Negative); Blood,Urine Negative (Negative); Color,Urine Yellow; Glucose,Urine (UA) Negative (Negative); Ketones,Urine Negative (Negative); Leukocyte Esterase,Urine Negative (Negative); Mucus,Urine Rare /hpf; Nitrite,Urine Negative (Negative); PH, Urine 7.5 (5.0-8.0); Protein,Urine Trace (Negative); Specific Gravity,Urine 1.018 (1.001-1.035); Squamous Epithelial Cell,Urine 14 /hpf (0-4); Urobilinogen,Urine <2.0 mg/dL (<2.0); WBC,Urine 7 /hpf (0-5)
[2018-03-03 20:44] VITALS: BP 118/56; PULSE 75
--- NOTE | 2018-03-03 20:50 | US ---
EXAMINATION TYPE: US OB >= 14 wk fetus DATE OF EXAM: 03/03/2018 COMPARISON: None CLINICAL HISTORY: PainBack pain and cramping. TECHNIQUE: Transabdominal (TA) GESTATIONAL AGE / DATING Physician Established: (15 weeks/5 days) EDC: 08/20/2018 Dates by LMP: (15 weeks/5 days) EDC: 08/20/2018 Dates by First Scan: (6 weeks/3 days) EDC: 08/24/2018 Dates by Current Scan: (16 weeks/1 days) EDC: 08/17/2018 Beta HCG (if available): Not available at this time SURVEY IUP: Single PLACENTA: Posterior PREVIA: No Previa TK: 11.25 cm Normal CERVICAL LENGTH (transabdominal: norm > 3.0cm): 3.0 cm BIOMETRY PRESENTATION: Vertex LIE: Longitudinal BPD: 3.3 cm 16 weeks / 1 days HC: 12.2 cm 16 weeks / 1 days AC: 10.33 cm 16 weeks / 2 days FL: 1.83 cm 15 weeks / 3 days ESTIMATED WEIGHT IN GRAMS: 138.54 grams ESTIMATED WEIGHT IN LBS/OZ: 0 lbs. 5 oz. WEIGHT PERCENTAGE BASED ON ESTABLISHED DATES: 53% HC/AC: 1.18cm Normal FL/AC: 17.69 Normal HEART RATE: 149 bpm RHYTHM: Normal IMPRESSION: VIABLE IUP 16W 1D; MARCELO 08/17/2018; HR 149 BPM.
== END 2018-03-03 21:12 | disposition home or self-care (01) ==
LOC: EC 17:36
DX: O99.89 Other specified diseases and conditions complicating pregnancy, childbirth and the puerperium (principal); R10.30 Lower abdominal pain, unspecified; M54.9 Dorsalgia, unspecified; O99.332 Smoking (tobacco) complicating pregnancy, second trimester; F17.200 Nicotine dependence, unspecified, uncomplicated; Z3A.16 16 weeks gestation of pregnancy; Z88.1 Allergy status to other antibiotic agents
CPT/HCPCS: 36415; 76805; 80053; 81001; 82150; 83690; 85025; 85610; 85730; 87086; 96360; 96361; 99284

== ENCOUNTER → 2018-03-18 | Outpatient (CLI) | payer OTHER ==
[2018-03-19 10:55] LABS: Alpha Fetoprotein (M.O.M) 0.64; B-HCG (M.O.M.) 0.86; Gestational Age (days) 6; Human Chorionic Gonadotropin 17.6 IU/mL; Inhibin A (M.O.M.) 0.42; Maternal Age at EDD (Yrs) 26; Smoker Yes; Unconjugated Estriol (M.O.M.) 1.38
== END | disposition home or self-care (01) ==
LOC: LABWHC1 08:43
PROVIDERS: ATTEND Obstetrics & Gynecology
DX: Z34.82 Encounter for supervision of other normal pregnancy, second trimester (principal); Z3A.00 Weeks of gestation of pregnancy not specified
CPT/HCPCS: 36415; 82105; 82677; 84702; 86336

== ENCOUNTER 2018-03-24 08:35 | Emergency (ER) | payer OTHER ==
[2018-03-24 08:56] VITALS: TEMP 98.2
[2018-03-24 08:57] VITALS: RESP 18
[2018-03-24] MEDS ORDERED: DOCUSATE 283 MG/5 ML ENEMA RECTAL STA (09:45)
[2018-03-24] MEDS ORDERED: MAGNESIUM CITRATE 296 ML BOTTLE PO ONE (09:45)
--- NOTE | 2018-03-24 10:28 | ED ---
Abdominal Pain HPI - General Chief Complaint: Abdominal Pain Stated Complaint: constipated Time Seen by Provider: 03/24/18 09:06 Source: patient, RN notes reviewed, old records reviewed Mode of arrival: ambulatory Limitations: no limitations - History of Present Illness Initial Comments: This Patient is a 27-year-old female currently 18 weeks chief complaint of constipation. Patient has not had a bowel movement in the past 5-6 days. She reports she's been trying raisin bran and eating "junk food". Patient states that she is a G4 female. AGRICULTURAL SCIENTIST is Dr. Quan. - Related Data Home Medications Medication Instructions Recorded Confirmed Ujq-Kjun-Phjjo Acid 1 cap PO DAILY 03/03/18 03/24/18 [-U Capsule (formulary)] Ondansetron Odt [Zofran ODT] 4 mg PO TID PRN 03/24/18 03/24/18 Previous Rx's Medication Instructions Recorded Nitrofurantoin Monohyd/M-Cryst 100 mg PO Q12HR #14 cap 03/24/18 [Macrobid] Allergies Allergy/AdvReac Type Severity Reaction Status Date / Time cephalexin [From Keflex] Allergy Itching Verified 03/24/18 09:25 Review of Systems ROS Statement: Those systems with pertinent positive or pertinent negative responses have been documented in the HPI. ROS Other: All systems not noted in ROS Statement are negative. Past Medical History Past Medical History: No Reported History Additional Past Medical History / Comment(s): CHLAMYDIA History of Any Multi-Drug Resistant Organisms: None Reported Past Surgical History: Orthopedic Surgery Additional Past Surgical History / Comment(s): D & C x 2 Past Psychological History: No Psychological Hx Reported Smoking Status: Current every day smoker Past Alcohol Use History: None Reported Past Drug Use History: None Reported General Exam - General Exam Comments Initial Comments: 27-year-old female. Alert and oriented. No acute distress. Limitations: no limitations General appearance: alert, in no apparent distress Head exam: Present: atraumatic, normocephalic, normal inspection Eye exam: Present: normal appearance, PERRL, EOMI. Absent: scleral icterus, conjunctival injection, periorbital swelling ENT exam: Present: normal exam, mucous membranes moist Neck exam: Present: normal inspection. Absent: tenderness, meningismus, lymphadenopathy Respiratory exam: Present: normal lung sounds bilaterally. Absent: respiratory distress, wheezes, rales, rhonchi, stridor Cardiovascular Exam: Present: regular rate, normal rhythm, normal heart sounds. Absent: systolic murmur, diastolic murmur, rubs, gallop, clicks GI/Abdominal exam: Present: soft, normal bowel sounds. Absent: distended, tenderness, guarding, rebound, rigid Extremities exam: Present: normal inspection, full ROM, normal capillary refill. Absent: tenderness, pedal edema, joint swelling, calf tenderness Course Vital Signs 03/24/18 03/24/18 08:53 11:39 Temperature 98.2 F Pulse Rate 97 Respiratory 18 Rate Blood Pressure 87/58 96/56 O2 Sat by Pulse 100 Oximetry Medical Decision Making - Medical Decision Making 27 rolled female currently 20 weeks' primary presents today with complaint constipation. Patient has not had a bowel movement past 5 days. Patient is given Therevac enema and did have significant bowel movement. Initially we're unable to obtain heart tones on Doppler. She then subsequently to an ultrasound does show viable IUP measuring 18 weeks of days. Patient has a decent bowel movement after Therevac enema. Patient is better at this time. We 'll discharge the Patient with by mouth mag citrate. She also had bacteria in her urine. Patient will be treated for a symptomatic bacteriuria . - Lab Data Lab Results 03/24/18 Range/Units 11:01 Urine Color Yellow Urine Appearance Cloudy H (Clear) Urine pH 7.0 (5.0-8.0) Ur Specific Friendly 1.018 (1.001-1.035) Urine Protein Negative (Negative) Urine Glucose (UA) Negative (Negative) Urine Ketones Negative (Negative) Urine Blood Negative (Negative) Urine Nitrite Negative (Negative) Urine Bilirubin Negative (Negative) Urine Urobilinogen <2.0 (<2.0) mg/dL Ur Leukocyte Esterase Negative (Negative) Urine WBC 1 (0-5) /hpf Ur Squamous Epith Cells 4 (0-4) /hpf Amorphous Sediment Rare H (None) /hpf Urine Bacteria Rare H (None) /hpf Urine Mucus Rare H (None) /hpf - Radiology Data Radiology results: report reviewed Ultrasound shows sonographic evidence of 18 weeks and date Disposition Clinical Impression: Constipation during , Asymptomatic bacteriuria, 18 weeks gestation of Disposition: HOME SELF-CARE Condition: Good Instructions: Constipation (ED), High Fiber Diet (ED) Additional Instructions: 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 Return to emergency department if any alarming signs or symptoms occur. Patient should increase fiber in her diet. Take Anabiotic as prescribed. Prescriptions: Nitrofurantoin Monohyd/M-Cryst [Macrobid] 100 mg PO Q12HR #14 cap Is patient prescribed a controlled substance at d/c from ED?: No Referrals: Cassy John MD [Primary Care Provider] - 1-2 days Time of Disposition: 13:16
[2018-03-24 11:28] LABS: Amorphous Sediment,Urine Rare /hpf; Appearance,Urine Cloudy (Clear); Bacteria,Urine Rare /hpf; Bilirubin,Urine Negative (Negative); Blood,Urine Negative (Negative); Color,Urine Yellow; Glucose,Urine (UA) Negative (Negative); Ketones,Urine Negative (Negative); Leukocyte Esterase,Urine Negative (Negative); Mucus,Urine Rare /hpf; Nitrite,Urine Negative (Negative); Protein,Urine Negative (Negative); Specific Gravity,Urine 1.018 (1.001-1.035); Squamous Epithelial Cell,Urine 4 /hpf (0-4); Urobilinogen,Urine <2.0 mg/dL (<2.0); WBC,Urine 1 /hpf (0-5)
--- NOTE | 2018-03-24 12:59 | US ---
EXAMINATION TYPE: US OB >= 14 wk fetus DATE OF EXAM: 03/24/2018 COMPARISON: US 12/28/17, 01/02/16, 03/03/18 CLINICAL HISTORY: Painconstipation TECHNIQUE: Transabdominal (TA) GESTATIONAL AGE / DATING Physician Established: (18 weeks/ 5 days) EDC: 08/20/18 Dates by LMP: 11/13/17 (18 weeks/5 days) EDC: 08/20/18 Dates by First Scan: (19 weeks/2 days) EDC: 08/24/18 Dates by Current Scan: (18 weeks/5 days) EDC: 08/20/18 Beta HCG (if available): SURVEY IUP: Single PLACENTA: Posterior PREVIA: No Previa TK: 15.2 cm Normal CERVICAL LENGTH (transabdominal: norm > 3.0cm): 4.1 cm BIOMETRY PRESENTATION: Breech LIE: Transverse with head maternal R BPD: 4.2 cm 18 weeks / 5 days HC: 15.9 cm 18 weeks / 5 days AC: 13.6 cm 19 weeks / 0 days FL: 2.9 cm 18 weeks / 5 days ESTIMATED WEIGHT IN GRAMS: 261.6 grams ESTIMATED WEIGHT IN LBS/OZ: 9 oz lbs. oz. WEIGHT PERCENTAGE BASED ON ESTABLISHED DATES: 54.9% HC/AC: 1.2 FL/AC: 67.8 HEART RATE: 152 bpm RHYTHM: Normal Dates are concordant with last menstrual period Live, 18wk 5 day IUP IMPRESSION: Single live intrauterine with a calculated sonographic age of 18 weeks and 5 days. Dates ar e concordant with last menstrual period
[2018-03-24 13:52] VITALS: BP 99/70; PULSE 68
== END 2018-03-24 13:52 | disposition home or self-care (01) ==
LOC: EC 08:35
DX: O99.612 Diseases of the digestive system complicating pregnancy, second trimester (principal); K59.00 Constipation, unspecified; O99.89 Other specified diseases and conditions complicating pregnancy, childbirth and the puerperium; R82.71 Bacteriuria; O99.332 Smoking (tobacco) complicating pregnancy, second trimester; F17.200 Nicotine dependence, unspecified, uncomplicated; Z3A.18 18 weeks gestation of pregnancy; Z88.1 Allergy status to other antibiotic agents
CPT/HCPCS: 76805; 81001; 99284

== ENCOUNTER 2018-05-08 17:04 | Outpatient (CLI) | payer OTHER ==
[2018-05-08 17:37] VITALS: BP 101/62; PULSE 78; RESP 16; TEMP 97
[2018-05-08] MEDS ORDERED: LACTATED RINGERS 1,000 ML IV ONE (17:45)
[2018-05-08 18:28] LABS: Amorphous Sediment,Urine Moderate /hpf; Appearance,Urine Turbid (Clear); Bilirubin,Urine Negative (Negative); Blood,Urine Negative (Negative); Color,Urine Yellow; Glucose,Urine (UA) Negative (Negative); Ketones,Urine Negative (Negative); Leukocyte Esterase,Urine Negative (Negative); Nitrite,Urine Negative (Negative); PH, Urine 6.5 (5.0-8.0); Protein,Urine Trace (Negative); RBC,Urine 2 /hpf (0-5); Specific Gravity,Urine 1.021 (1.001-1.035); Squamous Epithelial Cell,Urine 8 /hpf (0-4); Urobilinogen,Urine <2.0 mg/dL (<2.0); WBC,Urine 1 /hpf (0-5)
--- NOTE | 2018-05-19 15:07 | P.MSEPDOC ---
Presenting Problems - Arrival Data Date of Arrival on Unit: 05/08/18 Time of Arrival on Unit: 17:04 Mode of Transport: Wheelchair - Complaint OB-Reason for Admission/Chief Complaint: Pain Comment: bilateral lower abd pain and pelvic pain, groin and back pain. Medical History - Information : 4 Para: 1 Abortions: Spontaneous or Elective: 2 Number of Living Children: 1 - Gestational Age Gestational Age by MARCELO (wks/days): 25 Weeks and 1 Days Review of Systems - Review of Systems Constitutional: No problems Breast: No problems ENT: No problems Cardiovascular: No problems Respiratory: No problems Gastrointestinal: No problems Genitourinary: No problems Musculoskeletal: No problems Neurological: No problems Skin: No problems Vital Signs - Temperature Temperature: 97.0 F Temperature Source: Temporal Artery Scan - Pulse Right Sitting Brachial Pulse Rate: 78 Pulse Assessment Method: Automatic Cuff - Respirations Respiratory Rate: 16 Oxygen Delivery Method: Room Air O2 Sat by Pulse Oximetry: 98 - Blood Pressure Right Arm Sitting Blood Pressure: 101/62 Blood Pressure Mean: 75 Blood Pressure Source: Automatic Cuff Medical Screen Scoring (Pre) - Cervical Exam Dilation: Exam Deferred - Uterine Contractions Frequency: N/A Duration: N/A Intensity: N/A - Maternal Vital Signs Maternal Temperature: N/A Maternal Blood Pressure: N/A Signs of Preeclampsia: N/A Maternal Respirations: N/A - Maternal Trauma Maternal Trauma: N/A - Assessment Baseline FHR: 135 Heart Rate - NICHD Category: Category II (Indeterminate) = 3 Position: N/A Station: N/A - Total Score Total Score (Pre): 3 - Level of Risk Level of Risk: Low (0-5) Physician Notification (Pre) - Physician Notified Physician Notified Date: 05/08/18 Physician Notified Time: 17:42 Physician/Practitioner Notifed:: dr Krishna Spoke With: dr krishna New Order Received: Yes Disposition - Disposition OB Disposition: Discharge to home Discharge Date: 05/08/18 Discharge Time: 18:45 I agree with the RN Medical Screening Exam: Yes Risk & Benefit of care provided described in d/c instruction: Yes Diagnosis: PELVIC AND PERINEAL PAIN
== END 2018-05-08 18:45 | disposition home or self-care (01) ==
LOC: FBPOP 17:04
PROVIDERS: ATTEND Obstetrics & Gynecology
DX: O99.89 Other specified diseases and conditions complicating pregnancy, childbirth and the puerperium (principal); R10.2 Pelvic and perineal pain; Z3A.25 25 weeks gestation of pregnancy
CPT/HCPCS: 96365; 81001; G0463; 99214

== ENCOUNTER 2018-08-13 10:07 | Outpatient (CLI) | payer OTHER ==
--- NOTE | 2018-09-14 08:37 | P.MSEPDOC ---
Presenting Problems - Arrival Data Date of Arrival on Unit: 08/13/18 Time of Arrival on Unit: 10:07 Mode of Transport: Ambulatory - Complaint OB-Reason for Admission/Chief Complaint: Decreased Movement Comment: sent from office for decreased movement x1 week Medical History - Information : 4 Para: 1 Term: 1 : 0 Abortions: Spontaneous or Elective: 2 Number of Living Children: 1 - Gestational Age Gestational Age by MARCELO (wks/days): 39 Weeks and 0 Days Physician Notification (Pre) - Notification Comment Comment: orders for nst per dr. ragsdale prior to pts arrival Disposition - Disposition Discharge Date: 08/13/18 Discharge Time: 10:56 I agree with the RN Medical Screening Exam: Yes Risk & Benefit of care provided described in d/c instruction: Yes Diagnosis: DECREASED MOVEMENTS, THIRD TRIMESTER, FETUS 1
== END 2018-08-13 10:56 | disposition home or self-care (01) ==
LOC: FBPOP 10:07
PROVIDERS: ATTEND Obstetrics & Gynecology
DX: O36.8131 Decreased fetal movements, third trimester, fetus 1 (principal); Z3A.39 39 weeks gestation of pregnancy
CPT/HCPCS: 59025

== ENCOUNTER 2018-08-26 04:23 | Inpatient (IN) | payer OTHER ==
[2018-08-26] MEDS ORDERED: TERBUTALINE 1 MG/ML VIAL SQ PRN (04:37)
[2018-08-26] MEDS ORDERED: LIDOCAINE 0.5% (PF) 5 MG/ML (50 ML SDV) SQ PRN (04:37)
[2018-08-26] MEDS ORDERED: OXYTOCIN 10 UNIT/ML 1 ML VIAL IM PRN (04:37)
[2018-08-26] MEDS ORDERED: METHYLERGONOVINE 0.2 MG/ML 1 ML AMP IM PRN (04:37)
[2018-08-26] MEDS ORDERED: CARBOPROST TROMETHAMINE 250 MCG/ML 1 ML AMP IM PRN (04:37)
[2018-08-26] MEDS ORDERED: OXYTOCIN 30 UNITS/500 ML NS 30 UNIT in SALINE 1 500ML.BAG IV SCH (04:45)
[2018-08-26] MEDS: LACTATED RINGERS 1,000 ML IV SCH ×3 (04:56→18:31)
[2018-08-26 05:09] LABS: Basophils % (A) 0 %; Eosinophils # (A) 0.1 k/uL (0-0.7); Eosinophils % (A) 2 %; HCT 39.3 % (34.0-46.0); HGB 12.9 gm/dL (11.4-16.0); Lymphocytes # (A) 1.6 k/uL (1.0-4.8); Lymphocytes % (A) 32 %; MCH 29.3 pg (25.0-35.0); MCHC 32.9 g/dL (31.0-37.0); MCV 89.2 fL (80.0-100.0); Mean Platelet Volume 8.8; Monocytes # (A) 0.4 k/uL (0-1.0); Monocytes % (A) 9 %; Neutrophils # (A) 2.8 k/uL (1.3-7.7); Neutrophils % (A) 55 %; Platelet Count 177 k/uL (150-450); RBC 4.41 m/uL (3.80-5.40); RDW 13.9 % (11.5-15.5); WBC 5.2 k/uL (3.8-10.6)
[2018-08-26 05:39] VITALS: BMI 31.4
[2018-08-26] MEDS ORDERED: BUTORPHANOL 1 MG/ML 1 ML VIAL IV PRN (06:18)
[2018-08-26] MEDS ORDERED: ROPIVACAINE 100 MG, fentaNYL (PF) 200 MCG in SODIUM CHLORIDE 0.9% 76 ML EPIDURAL ONE (08:54)
[2018-08-26] MEDS ORDERED: ONDANSETRON 4 MG/2 ML VIAL ONE (09:18)
[2018-08-26] MEDS ORDERED: HYDROmorphone (PF) 1 MG/ML ONE (09:18)
[2018-08-26] MEDS ORDERED: MIDAZOLAM 2 MG/2 ML VIAL ONE (09:18)
[2018-08-26] MEDS ORDERED: DEXAMETHASONE SOD PHOS (MDV) 100 MG/10 ML VIAL ONE (09:18)
[2018-08-26] MEDS ORDERED: OXYTOCIN 10 UNIT/ML 1 ML VIAL ONE (09:18)
[2018-08-26] MEDS ORDERED: KETOROLAC 30 MG/ML 1 ML VIAL ONE (09:18)
[2018-08-26] MEDS ORDERED: MORPHINE SULFATE (PF) 0.3 MG/0.3 ML SYR ONE (09:18)
[2018-08-26] MEDS ORDERED: CLINDAMYCIN 150 MG/ML 4 ML VIAL ONE (09:18)
[2018-08-26] MEDS ORDERED: CITRIC ACID-SODIUM CITRATE 15 ML CUP PO ONE (09:23)
[2018-08-26] MEDS ORDERED: ZOLPIDEM 5 MG TAB PO PRN (09:58)
[2018-08-26] MEDS ORDERED: ONDANSETRON 4 MG/2 ML VIAL IVP PRN (09:58)
[2018-08-26] MEDS ORDERED: diphenhydrAMINE 50 MG CAP PO PRN (09:58)
[2018-08-26] MEDS ORDERED: diphenhydrAMINE 25 MG CAP PO PRN (09:58)
[2018-08-26] MEDS ORDERED: NALOXONE 0.4 MG/ML 1 ML VIAL IV PRN (09:58)
[2018-08-26] MEDS ORDERED: diphenhydrAMINE 50 MG/ML 1 ML VIAL IVP PRN ×2 (09:58)
[2018-08-26] MEDS ORDERED: METOCLOPRAMIDE 5 MG/ML 2 ML VIAL IVP PRN (09:58)
[2018-08-26] MEDS ORDERED: ACETAMINOPHEN TAB 325 MG TAB PO PRN (09:58)
--- NOTE | 2018-08-26 10:04 | P.HPOB ---
History of Present Illness H&P Date: 08/26/18 Chief Complaint: Intrauterine at term: Active labor Shayna is a 27 she'll at 40 weeks gestation who arrives in active labor making cervical change. She was scheduled originally for induction but had canceled her induction but this morning she is dilated to 4 cm 80% effaced -2 station. She was kristina every 4-6 minutes and an epidural was being placed at time of my evaluation. course was, complicated by a echogenic focus noted on ultrasound for which she was seen by maternal- medicine as well as marijuana use early in the and a marginal previa. Repeat ultrasounds showed probably had resolved. Pertinent labs include A+ blood type, Rh antibody was negative, rubella was immune, hepatitis B surface antigen and RPR and GBS were all negative. On physical exam vital signs are stable and afebrile. Heart regular, lungs clear, extremities without pain. Abdomen soft nontender gravid uterus is noted. Is noted that shortly after placement of epidural baby started having variable decelerations that were going into the 6 0s. Measures were taken including placing patient on her left side and applying oxygen during the contractions and in between the contractions and baseline was noted to be approximately 1:30. Over the next half hour she dilated from 6-8 and then over the next half hour after that she did not make any further cervical change but some of the decelerations while variable were very deep and went down as low as 35. They did within 1-2 minutes return to baseline however she did not make any cervical currency exchange specialist the following monitored time. And with each contraction was having deep variable decelerations, most those variable decelerations were only into the 60s or 70s and return to baseline wi thin 1-2 minutes. However after discussion with the patient and without her making any further cervical change in decision to move forward with a primary section was made as baby continued to have deep variable decelerations and concern over taking nuchal cord was made. This was all explained to the patient including risks/benefits of surgery which did include but were not limited to bleeding and infection, bleeding damage to uterus, bladder. Assessment intrauterine at term in labor, remote from delivery with heart tones decelerating into the 60s with most contractions but into the 30s with at least 2 of the contractions Plan primary low transverse section. A Blas catheter had previously been placed. Past Medical History Past Medical History: No Reported History Additional Past Medical History / Comment(s): CHLAMYDIA History of Any Multi-Drug Resistant Organisms: None Reported Past Surgical History: Orthopedic Surgery Additional Past Surgical History / Comment(s): D & C x 2 Past Anesthesia/Blood Transfusion Reactions: Unable to Obtain Past Psychological History: No Psychological Hx Reported Smoking Status: Former smoker Past Alcohol Use History: None Reported Past Drug Use History: None Reported - Past Family History Mother Family Medical History: Hypertension Medications and Allergies Home Medications Medication Instructions Recorded Confirmed Type Yjc-Yzha-Hvcvy Acid 1 cap PO DAILY 03/03/18 08/26/18 History [-U Capsule (formulary)] Iron 27 mg PO DAILY 08/26/18 08/26/18 History Allergies Allergy/AdvReac Type Severity Reaction Status Date / Time cephalexin [From Keflex] Allergy Swelling Verified 08/26/18 04:34 Exam Osteopathic Statement: *. No significant issues noted on an osteopathic structural exam other than those noted in the History and Physical/Consult. Vital Signs Temp Pulse Resp BP Pulse Ox 08/26/18 04:45 97.3 F L 77 16 107/56 99 Intake and Output 08/25/18 08/26/18 08/26/18 22:59 06:59 14:59 Other: # Voids 2 Weight 83.007 kg Results Result Diagrams: 08/26/18 04:35
--- NOTE | 2018-08-26 10:09 | P.OP ---
Date of Procedure: 08/26/18 Preoperative Diagnosis: Intrauterine at term: Deep variable decelerations remote from delivery Postoperative Diagnosis: Same Procedure(s) Performed: Primary low transverse section Anesthesia: epidural Surgeon: Ravi Burciaga Manager Safe #1: Sotero Light Estimated Blood Loss (ml): 500 IV fluids (ml): 500 Urine output (ml): 50 Pathology: none sent Condition: stable Disposition: floor Operative Findings: Male scores 9 and 9 at one and 5 minutes respectively and the weight was 8 lbs. 4 oz. Baby was delivered from straight occiput posterior position. During the course of moving Shayna from her bed to the section table the Blas catheter unfortunately got hooked on the bed and did pop out she did have some pain but I replaced the Blas catheter with a new catheter there is no external damage that is visualized urine is just lightly blood- tinged but was blood-tinged following the initial placement and I cannot at this time find any other abnormalities, will maintain Blas catheter through the extended recovery. And reevaluate, if blood in the catheter continues may need to consult urology, however it is unclear to me at this time what they may do differently as no damage is visualized other than some mild swelling Description of Procedure: Patient was taken to the operating suite where a epidural anesthetic was found be adequate. She was prepped and draped in normal sterile fashion and placed in the dorsal supine position with leftward tilt. Initially a Pfannenstiel skin incision was made and this incision was then carried through to underlying layer of the fashion with the second knife. Fascia was then nicked in the midline and this opening was extended laterally with Haq scissors. Superior and inferior aspect of this incision were then grasped tented up and bluntly and sharply dissected off the rectus muscles. Rectus muscles were then divided the midline and sharp dissection through the peritoneum was made. This opening was then extended superiorly and inferiorly with good visualization of both bowel bladder. Bladder blade was then placed and the vesicouterine peritoneum identified. It was entered sharply with Metzenbaum scissors and this opening was extended across face uterus with metastases sponsors her bladder flap was digitally created. Knife was then used to incise uterus this opening was fully developed with hemostat and then extended bluntly. Head was then atraumatically delivered from straight open position nearly a brow presentation. Once baby's head was delivered mouth nares were bulb suctioned anterior posterior shoulders were then easily delivered with gentle traction and the umbilical cord was allowed to pulsate for 20 seconds prior to clamping and cutting. Once this was accomplished nursery personnel and quail farmer were present to us assume care. Placenta was then delivered intact and Pitocin was added to the IV. Uterus was then exteriorized cleared of clots and debris and closed in 2 layers with 0 Vicryl suture. Once excellent hemostasis was obtained blood and debris was suctioned from the posterior cul-de-sac and the uterus was reinserted into the a bdomen. Peritoneal layer was then closed with 0 Vicryl suture. Fascial layer was closed with 0 Vicryl suture. 3-0 Vicryl was then used to reapproximate the skin and the skin was then closed with 3-0 Vicryl subcuticularly. Sponge, lap, needle counts were all correct 2. Patient was then taken to the recovery room in stable and satisfactory condition.
[2018-08-26] MEDS: NALBUPHINE 10 MG/ML (1 ML AMP) IV SCH ×2 (15:35→21:03)
[2018-08-26] MEDS: SENNOSIDES-DOCUSATE SODIUM 1 EACH TAB PO SCH (21:00)
[2018-08-27] MEDS: SIMETHICONE 80 MG CHEWABLE PO PRN ×3 (00:18→13:58)
[2018-08-27] MEDS: KETOROLAC 30 MG/ML 1 ML VIAL IVP PRN ×2 (00:37→07:53)
[2018-08-27] MEDS: LACTATED RINGERS 1,000 ML IV SCH ×2 (01:32→02:27)
[2018-08-27] MEDS: NALBUPHINE 10 MG/ML (1 ML AMP) IV SCH (02:07)
[2018-08-27] MEDS: SENNOSIDES-DOCUSATE SODIUM 1 EACH TAB PO SCH ×2 (07:56→20:06)
[2018-08-27 08:00] LABS: Basophils % (A) 0 %; Eosinophils # (A) 0.1 k/uL (0-0.7); Eosinophils % (A) 1 %; HCT 30.8 % (34.0-46.0); Lymphocytes # (A) 1.5 k/uL (1.0-4.8); Lymphocytes % (A) 18 %; MCH 30.1 pg (25.0-35.0); MCHC 33.3 g/dL (31.0-37.0); MCV 90.4 fL (80.0-100.0); Mean Platelet Volume 7.9; Monocytes # (A) 0.6 k/uL (0-1.0); Monocytes % (A) 7 %; Neutrophils # (A) 6.2 k/uL (1.3-7.7); Neutrophils % (A) 73 %; Platelet Count 151 k/uL (150-450); RBC 3.41 m/uL (3.80-5.40); RDW 14.1 % (11.5-15.5); WBC 8.5 k/uL (3.8-10.6)
[2018-08-27 08:04] LABS: HGB 10.3 gm/dL (11.4-16.0)
--- NOTE | 2018-08-27 09:45 | P.PNOBGPC ---
Subjective - Subjective Principal diagnosis: Postop day 1 Interval history: PAUL is doing very well postop day 1. She's ablating, voiding, and she is tolerating her diet. She voices no complaints. She is beginning to pass some flatus. Patient reports: Reports appetite normal, Reports voiding normally, Reports pain well controlled, Reports ambulating normally Babcock: doing well Objective - Vital Signs Latest vital signs: Vital Signs Temp Pulse Resp BP Pulse Ox 08/27/18 08:30 97.5 F L 88 18 97/66 97 08/27/18 04:00 98.2 F 86 16 89/49 96 08/27/18 00:00 97.5 F L 67 16 106/67 98 08/26/18 20:53 99.1 F 84 16 96/56 97 08/26/18 15:40 98.6 F 77 14 114/58 08/26/18 12:25 98.7 F 77 18 115/54 08/26/18 11:39 66 14 92/61 08/26/18 11:03 67 12 100/53 08/26/18 10:49 81 14 104/56 08/26/18 10:39 77 14 101/57 08/26/18 10:24 88 14 106/55 08/26/18 10:09 97.6 F 79 16 91/51 Intake and Output 08/26/18 08/27/18 08/27/18 22:59 06:59 14:59 Output Total 2700 500 Balance -2700 -500 Output: Urine 2700 500 Other: Voiding Method Indwelling Catheter - Exam Lungs: bilateral: normal Chest: Normal S1, Normal S2 Extremities: Present: normal Abdomen: Present: normal appearance, soft. Absent: distention, tenderness Incision: Present: normal, dry, intact Uterus: Present: normal, firm - Labs Labs: Abnormal Lab Results - Last 24 Hours (Table) 08/27/18 Range/Units 06:53 RBC 3.41 L (3.80-5.40) m/uL Hgb 10.3 L (11.4-16.0) gm/dL Hct 30.8 L (34.0-46.0) %
[2018-08-27] MEDS: IBUPROFEN 600 MG TAB PO PRN ×2 (13:58→20:06)
[2018-08-27] MEDS: HYDROcodone/APAP 7.5-325MG 1 EACH TAB PO PRN (17:20)
[2018-08-28] MEDS: NALBUPHINE 10 MG/ML (1 ML AMP) IV SCH ×4 (01:15→21:05)
[2018-08-28] MEDS: IBUPROFEN 600 MG TAB PO PRN ×3 (04:39→23:28)
[2018-08-28] MEDS: HYDROcodone/APAP 7.5-325MG 1 EACH TAB PO PRN ×4 (07:55→20:16)
--- NOTE | 2018-08-28 08:50 | P.PNOBGPC ---
Subjective - Subjective Principal diagnosis: Postop day 2 Interval history: Overall Shayna is doing well. She is involuting, voiding and she is tolerating her diet. She had a bowel movement this morning. Her vital signs are stable and afebrile. Heart regular, lungs clear, extremities without pain. Her abdomen is soft, nontender other than incisional pain. Incision clean dry and intact. Assessment postop day 2. Plan continue current care. Patient reports: Reports appetite normal, Reports voiding normally, Reports pain well controlled, Reports ambulating normally : doing well Objective - Vital Signs Latest vital signs: Vital Signs Temp Pulse Resp BP Pulse Ox 08/28/18 00:00 97.5 F L 73 16 101/59 97 08/27/18 15:42 98.4 F 90 18 103/49 97
[2018-08-28] MEDS: SENNOSIDES-DOCUSATE SODIUM 1 EACH TAB PO SCH ×2 (10:06→20:16)
[2018-08-29] MEDS: HYDROcodone/APAP 7.5-325MG 1 EACH TAB PO PRN ×3 (04:23→16:36)
[2018-08-29] MEDS: IBUPROFEN 600 MG TAB PO PRN ×3 (06:35→20:56)
--- NOTE | 2018-08-29 08:15 | P.PNOBGPC ---
Subjective - Subjective Principal diagnosis: Status post repeat low transverse postoperative day #3 Interval history: Patient seen and examined. She says that the left side of her incision is still uncomfortable and has had a migraine since yesterday. Movement this and change the headache that she has and is just a dull ache constantly. Patient reports: Reports appetite normal, Reports voiding normally, Reports pain well controlled, Reports ambulating normally : doing well Objective - Vital Signs Latest vital signs: Vital Signs Temp Pulse Resp BP Pulse Ox 08/29/18 00:00 98 F 70 18 105/53 100 08/28/18 15:00 97.6 F 83 18 129/70 98 - Exam Lungs: bilateral: normal Chest: Normal S1, Normal S2 Extremities: Present: normal Abdomen: Present: normal appearance, soft. Absent: distention, tenderness Incision: Present: normal, dry, intact Uterus: Present: normal, firm Assessment and Plan (1) Status post repeat low transverse section Current Visit: Yes Status: Acute Code(s): Z98.891 - HISTORY OF UTERINE SCAR FROM PREVIOUS SURGERY SNOMED Code(s): 873850688 Plan: 1. Continue pain medication as scheduled. 2. May use ice packs to her neck and her incision for pain 3. Considering her blood pressures are normal and do not think that this headache has anything to do with being . I advised her to have some caffeine and increase her fluid intake.
[2018-08-29] MEDS: SENNOSIDES-DOCUSATE SODIUM 1 EACH TAB PO SCH ×2 (09:22→20:07)
[2018-08-29] MEDS: NALBUPHINE 10 MG/ML (1 ML AMP) IV SCH ×2 (15:06→20:07)
[2018-08-30] MEDS: HYDROcodone/APAP 7.5-325MG 1 EACH TAB PO PRN ×2 (00:23→08:06)
[2018-08-30] MEDS: IBUPROFEN 600 MG TAB PO PRN (04:53)
--- NOTE | 2018-08-30 08:00 | P.DS ---
Providers Date of admission: 08/26/18 04:23 Expected date of discharge: 08/30/18 Attending physician: Ravi Burciaga Primary care physician: Stated None - Discharge Diagnosis(es) (1) Status post repeat low transverse section Current Visit: Yes Status: Acute Hospital Course: Patient presented for repeat low transverse and she underwent this procedure without complication. Her postoperative course was complicated by mild headache but this was not behaving like a spinal headache and blood pressures are normal. The headache did get better when she turned the temperature in the room down. Her postoperative pain is controlled with [place] and Motrin. She is tolerating regular diet, seen ambulating in the room without difficulty, voiding without difficulty and passing flatus. She'll be discharged home postoperative day #4 in stable condition to follow-up with Dr. Burciaga in 1 week. Plan - Discharge Summary New Discharge Prescriptions: New Ibuprofen [Motrin] 600 mg PO Q6HR PRN #30 tab PRN Reason: Mild Pain Or Fever >= 100.5 HYDROcodone/APAP 7.5-325MG [[place] 7.5-325] 1 each PO Q4H PRN #18 tab PRN Reason: Severe Pain No Action Crb-Bhha-Owdny Acid [-U Capsule (formulary)] 1 cap PO DAILY Iron 27 mg PO DAILY Discharge Medication List Xsf-Xxvy-Obtwo Acid [-U Capsule (formulary)] 1 cap PO DAILY 03/03/18 [History] Iron 27 mg PO DAILY 08/26/18 [History] HYDROcodone/APAP 7.5-325MG [[place] 7.5-325] 1 each PO Q4H PRN #18 tab 08/30/18 [Rx] Ibuprofen [Motrin] 600 mg PO Q6HR PRN #30 tab 08/30/18 [Rx] Follow up Appointment(s)/Referral(s): Ravi Burciaga DO [Doctor of Osteopathic Medicine] - 1 Week Discharge Disposition: HOME SELF-CARE
[2018-08-30] MEDS: SENNOSIDES-DOCUSATE SODIUM 1 EACH TAB PO SCH (09:02)
[2018-08-30 09:39] VITALS: BP 120/67; PULSE 62; RESP 18; TEMP 98.5
== END 2018-08-30 11:59 | disposition home or self-care (01) | DRG 787 ==
LOC: 4FBP 04:23
PROVIDERS: ADMIT Obstetrics & Gynecology; ATTEND Obstetrics & Gynecology
PROC: 3E0R3BZ Introduction of Anesthetic Agent into Spinal Canal, Percutaneous Approach (ICD-10-PCS; 2018-08-26)
PROC: 10D00Z1 Extraction of Products of Conception, Low, Open Approach (ICD-10-PCS; principal; 2018-08-26 09:22)
DX: O76 Abnormality in fetal heart rate and rhythm complicating labor and delivery (principal); O99.321 Drug use complicating pregnancy, first trimester; O99.354 Diseases of the nervous system complicating childbirth; F12.90 Cannabis use, unspecified, uncomplicated; R51 Headache; Z37.0 Single live birth; Z3A.40 40 weeks gestation of pregnancy; Z79.899 Other long term (current) drug therapy; Z87.891 Personal history of nicotine dependence; Z86.19 Personal history of other infectious and parasitic diseases; Z88.1 Allergy status to other antibiotic agents; Z82.49 Family history of ischemic heart disease and other diseases of the circulatory system
CPT/HCPCS: 85025; 86850; 86900; 86901

== ENCOUNTER 2020-02-23 01:25 | Emergency (ER) | payer OTHER ==
--- NOTE | 2020-02-23 01:44 | ED ---
Abdominal Pain HPI - General Chief Complaint: Abdominal Pain Stated Complaint: Abdominal pain Time Seen by Provider: 02/23/20 01:27 Source: patient, RN notes reviewed Mode of arrival: ambulatory Limitations: no limitations - History of Present Illness Initial Comments: 29-year-old female presents emergency Department chief complaint of ongoing abdominal issues,. Frequency and fatigued. Patient states that she has some lower abdominal pain no vaginal bleeding or vaginal discharge. Patient is 6 months . Patient did have a section. Patient states that she noticed that she's been urinating more than usual. She initially related this to her alcohol intake which she states that she has been drinking lately. She denies any withdrawal symptoms. Patient has no history of pancreatitis denies any current nausea vomiting no diarrhea constipation. - Related Data Home Medications Medication Instructions Recorded Confirmed Rzb-Lubw-Csfuc Acid 1 cap PO DAILY 03/03/18 08/26/18 [-U Capsule (formulary)] Iron 27 mg PO DAILY 08/26/18 08/26/18 Previous Rx's Medication Instructions Recorded HYDROcodone/APAP 7.5-325MG [[place] 1 each PO Q4H PRN #18 tab 08/30/18 7.5-325] Ibuprofen [Motrin] 600 mg PO Q6HR PRN #30 tab 08/30/18 Sulfamethox-Tmp 800-160Mg [Bactrim 1 each PO Q12HR #14 tab 02/23/20 Ds] Allergies Allergy/AdvReac Type Severity Reaction Status Date / Time cephalexin [From Keflex] Allergy Swelling Verified 02/23/20 01:32 Review of Systems ROS Statement: Those systems with pertinent positive or pertinent negative responses have been documented in the HPI. ROS Other: All systems not noted in ROS Statement are negative. Past Medical History Past Medical History: No Reported History Additional Past Medical History / Comment(s): CHLAMYDIA History of Any Multi-Drug Resistant Organisms: None Reported Past Surgical History: Orthopedic Surgery Additional Past Surgical History / Comment(s): D & C x 2 Past Anesthesia/Blood Transfusion Reactions: Unable to Obtain Past Psychological History: No Psychological Hx Reported Smoking Status: Never smoker Past Alcohol Use History: None Reported Past Drug Use History: None Reported - Past Family History Mother Family Medical History: Hypertension General Exam Limitations: no limitations General appearance: alert, in no apparent distress Head exam: Present: atraumatic, normocephalic, normal inspection Eye exam: Present: normal appearance, PERRL, EOMI. Absent: scleral icterus, conjunctival injection, periorbital swelling ENT exam: Present: normal exam, normal oropharynx, mucous membranes moist Neck exam: Present: normal inspection, full ROM. Absent: tenderness, meningismus, lymphadenopathy Respiratory exam: Present: normal lung sounds bilaterally. Absent: respiratory distress, wheezes, rales, rhonchi, stridor Cardiovascular Exam: Present: regular rate, normal rhythm, normal heart sounds. Absent: systolic murmur, diastolic murmur, rubs, gallop, clicks GI/Abdominal exam: Present: soft, tenderness (Mild suprapubic), normal bowel sounds. Absent: distended, guarding, rebound, rigid Back exam: Absent: CVA tenderness (R), CVA tenderness (L) Neurological exam: Present: alert, oriented X3 Course Vital Signs 02/23/20 01:28 Temperature 98.7 F Pulse Rate 74 Respiratory 18 Rate Blood Pressure 104/70 O2 Sat by Pulse 98 Oximetry Medical Decision Making - Medical Decision Making 21-year-old female presented for abdominal pain, urinary frequency. Patient is evidence of urinary tract infection. Upon discharge and the patient patient was concerned about possible STDs. Patient will be given Rocephin and she is tolerating the past she does have an ALLERGY to Keflex. Patient will also receive Flagyl and azithromycin. Patient will be discharged on Bactrim return parameters were discussed. - Lab Data Result diagrams: 02/23/20 01:58 02/23/20 01:58 Lab Results 02/23/20 02/23/20 02/23/20 Range/Units 01:58 01:58 01:58 WBC 7.4 (3.8-10.6) k/uL RBC 5.26 (3.80-5.40) m/uL Hgb 15.4 (11.4-16.0) gm/dL Hct 47.5 H (34.0-46.0) % MCV 90.3 (80.0-100.0) fL MCH 29.2 (25.0-35.0) pg MCHC 32.3 (31.0-37.0) g/dL RDW 13.1 (11.5-15.5) % Plt Count 270 (150-450) k/uL Neutrophils % 43 % Lymphocytes % 46 % Monocytes % 5 % Eosinophils % 4 % Basophils % 0 % Neutrophils # 3.1 (1.3-7.7) k/uL Lymphocytes # 3.4 (1.0-4.8) k/uL Monocytes # 0.4 (0-1.0) k/uL Eosinophils # 0.3 (0-0.7) k/uL Basophils # 0.0 (0-0.2) k/uL Sodium (137-145) mmol/L Potassium (3.5-5.1) mmol/L Chloride (98-107) mmol/L Carbon Dioxide (22-30) mmol/L Anion Gap mmol/L BUN (7-17) mg/dL Creatinine (0.52-1.04) mg/dL Est GFR (CKD-EPI)AfAm (>60 ml/min/1.73 sqM) Est GFR (CKD-EPI)NonAf (>60 ml/min/1.73 sqM) Glucose (74-99) mg/dL Calcium (8.4-10.2) mg/dL Total Bilirubin (0.2-1.3) mg/dL AST (14-36) U/L ALT (4-34) U/L Alkaline Phosphatase (38-126) U/L Total Protein (6.3-8.2) g/dL Albumin (3.5-5.0) g/dL Lipase (23-300) U/L Urine Color Yellow Urine Appearance Cloudy H (Clear) Urine pH 5.5 (5.0-8.0) Ur Specific [place] 1.032 (1.001-1.035) Urine Protein Trace H (Negative) Urine Glucose (UA) Negative (Negative) Urine Ketones Negative (Negative) Urine Blood Small H (Negative) Urine Nitrite Negative (Negative) Urine Bilirubin Negative (Negative) Urine Urobilinogen <2.0 (<2.0) mg/dL Ur Leukocyte Esterase Moderate H (Negative) Urine RBC 11 H (0-5) /hpf Urine WBC 30 H (0-5) /hpf Ur Squamous Epith Cells 11 H (0-4) /hpf Urine Bacteria Rare H (None) /hpf Hyaline Casts 6 H (0-2) /lpf Urine Mucus Occasional H (None) /hpf Urine HCG, Qual Not Detected (Not Detectd) 09/16/20 Range/Units 01:58 WBC (3.8-10.6) k/uL RBC (3.80-5.40) m/uL Hgb (11.4-16.0) gm/dL Hct (34.0-46.0) % MCV (80.0-100.0) fL MCH (25.0-35.0) pg MCHC (31.0-37.0) g/dL RDW (11.5-15.5) % Plt Count (150-450) k/uL Neutrophils % % Lymphocytes % % Monocytes % % Eosinophils % % Basophils % % Neutrophils # (1.3-7.7) k/uL Lymphocytes # (1.0-4.8) k/uL Monocytes # (0-1.0) k/uL Eosinophils # (0-0.7) k/uL Basophils # (0-0.2) k/uL Sodium 138 (137-145) mmol/L Potassium 4.1 (3.5-5.1) mmol/L Chloride 106 (98-107) mmol/L Carbon Dioxide 23 (22-30) mmol/L Anion Gap 9 mmol/L BUN 14 (7-17) mg/dL Creatinine 0.97 (0.52-1.04) mg/dL Est GFR (CKD-EPI)AfAm >90 (>60 ml/min/1.73 sqM) Est GFR (CKD-EPI)NonAf 80 (>60 ml/min/1.73 sqM) Glucose 96 (74-99) mg/dL Calcium 9.8 (8.4-10.2) mg/dL Total Bilirubin 0.4 (0.2-1.3) mg/dL AST 22 (14-36) U/L ALT 22 (4-34) U/L Alkaline Phosphatase 78 (38-126) U/L Total Protein 8.0 (6.3-8.2) g/dL Albumin 4.7 (3.5-5.0) g/dL Lipase 151 (23-300) U/L Urine Color Urine Appearance (Clear) Urine pH (5.0-8.0) Ur Specific [place] (1.001-1.035) Urine Protein (Negative) Urine Glucose (UA) (Negative) Urine Ketones (Negative) Urine Blood (Negative) Urine Nitrite (Negative) Urine Bilirubin (Negative) Urine Urobilinogen (<2.0) mg/dL Ur Leukocyte Esterase (Negative) Urine RBC (0-5) /hpf Urine WBC (0-5) /hpf Ur Squamous Epith Cells (0-4) /hpf Urine Bacteria (None) /hpf Hyaline Casts (0-2) /lpf Urine Mucus (None) /hpf Urine HCG, Qual (Not Detectd) Disposition Clinical Impression: UTI (urinary tract infection) Disposition: HOME SELF-CARE Condition: Stable Instructions (If sedation given, give patient instructions): Urinary Tract Infection in Women (ED) Additional Instructions: Please return to the Emergency Department if symptoms worsen or any other concerns. Prescriptions: Sulfamethox-Tmp 800-160Mg [Bactrim Ds] 1 each PO Q12HR #14 tab Is patient prescribed a controlled substance at d/c from ED?: No Referrals: Cassy John MD [Primary Care Provider] - 1-2 days Time of Disposition: 02:38
[2020-02-23 02:07] LABS: Basophils % (A) 0 %; Eosinophils # (A) 0.3 k/uL (0-0.7); Eosinophils % (A) 4 %; HCT 47.5 % (34.0-46.0); HGB 15.4 gm/dL (11.4-16.0); Lymphocytes # (A) 3.4 k/uL (1.0-4.8); Lymphocytes % (A) 46 %; MCH 29.2 pg (25.0-35.0); MCHC 32.3 g/dL (31.0-37.0); MCV 90.3 fL (80.0-100.0); Mean Platelet Volume 7.3; Monocytes # (A) 0.4 k/uL (0-1.0); Monocytes % (A) 5 %; Neutrophils # (A) 3.1 k/uL (1.3-7.7); Neutrophils % (A) 43 %; Platelet Count 270 k/uL (150-450); RBC 5.26 m/uL (3.80-5.40); RDW 13.1 % (11.5-15.5); WBC 7.4 k/uL (3.8-10.6)
[2020-02-23 02:23] LABS: ALT 22 U/L (4-34); AST 22 U/L (14-36); African American GFR (CKD) >90 (>60 ml/min/1.73 sqM); Albumin 4.7 g/dL (3.5-5.0); Alkaline Phosphatase 78 U/L (38-126); Anion Gap 9 mmol/L; Blood Urea Nitrogen 14 mg/dL (7-17); Calcium 9.8 mg/dL (8.4-10.2); Carbon Dioxide 23 mmol/L (22-30); Chloride 106 mmol/L (98-107); Glucose 96 mg/dL (74-99); Non-African American GFR(CKD) 80 (>60 ml/min/1.73 sqM); Potassium 4.1 mmol/L (3.5-5.1); Sodium 138 mmol/L (137-145); Total Bilirubin 0.4 mg/dL (0.2-1.3)
[2020-02-23 02:30] LABS: Appearance,Urine Cloudy (Clear); Bacteria,Urine Rare /hpf; Bilirubin,Urine Negative (Negative); Blood,Urine Small (Negative); Color,Urine Yellow; Glucose,Urine (UA) Negative (Negative); Hyaline Casts,Urine 6 /lpf (0-2); Ketones,Urine Negative (Negative); Leukocyte Esterase,Urine Moderate (Negative); Mucus,Urine Occasional /hpf; Nitrite,Urine Negative (Negative); PH, Urine 5.5 (5.0-8.0); Protein,Urine Trace (Negative); RBC,Urine 11 /hpf (0-5); Specific Gravity,Urine 1.032 (1.001-1.035); Squamous Epithelial Cell,Urine 11 /hpf (0-4); Urobilinogen,Urine <2.0 mg/dL (<2.0); WBC,Urine 30 /hpf (0-5)
[2020-02-23] MEDS ORDERED: metroNIDAZOLE 500 MG TAB PO STA (02:36)
[2020-02-23] MEDS ORDERED: AZITHROMYCIN 250 MG TAB PO STA (02:36)
[2020-02-23 02:52] VITALS: BP 129/79; PULSE 71; RESP 20; TEMP 98.8
[2020-02-23] MEDS ORDERED: cefTRIAXone IN SWFI 1,000 MG/10 ML SYRINGE IVP ONE (03:00)
[2020-02-24 14:22] LABS: C. trachomatis,PCR Negative (Neg,Equiv); Chlamydia trachomatis Source Urine; N. gonorrhoeae,PCR Negative (Neg,Equiv); Neisseria Source Urine
== END 2020-02-23 02:53 | disposition home or self-care (01) ==
LOC: EC 01:25
DX: N39.0 Urinary tract infection, site not specified (principal); Z88.1 Allergy status to other antibiotic agents; Z79.899 Other long term (current) drug therapy
CPT/HCPCS: 36415; 80053; 83690; 85025; 81001; 81025; 87491; 87591; 87086; 96374; 99284; J0696

== ENCOUNTER 2020-11-01 11:02 | Emergency (ER) | payer OTHER ==
[2020-11-01 11:10] VITALS: BP 106/64; PULSE 100; RESP 16; TEMP 98
== END 2020-11-01 11:35 | disposition left against medical advice (07) ==
LOC: EC 11:02
DX: Z53.21 Procedure and treatment not carried out due to patient leaving prior to being seen by health care provider (principal)

== ENCOUNTER 2020-12-13 13:33 | Emergency (ER) | payer OTHER ==
[2020-12-13 13:39] VITALS: RESP 18; TEMP 97.6
[2020-12-13] MEDS ORDERED: SODIUM CHLORIDE 0.9% 1,000 ML IV STA (14:13)
[2020-12-13] MEDS ORDERED: ONDANSETRON 4 MG/2 ML VIAL IVP STA (14:13)
[2020-12-13] MEDS ORDERED: KETOROLAC 15 MG/ML 1 ML VIAL IVP STA (14:13)
[2020-12-13 14:45] LABS: Basophils % (A) 1 %; Eosinophils # (A) 0.2 k/uL (0-0.7); Eosinophils % (A) 3 %; HCT 41.6 % (34.0-46.0); HGB 13.7 gm/dL (11.4-16.0); Lymphocytes # (A) 1.6 k/uL (1.0-4.8); Lymphocytes % (A) 28 %; MCH 28.2 pg (25.0-35.0); MCHC 32.9 g/dL (31.0-37.0); MCV 85.5 fL (80.0-100.0); Monocytes # (A) 0.3 k/uL (0-1.0); Monocytes % (A) 5 %; Neutrophils # (A) 3.6 k/uL (1.3-7.7); Neutrophils % (A) 62 %; Platelet Count 266 k/uL (150-450); RBC 4.86 m/uL (3.80-5.40); RDW 13.2 % (11.5-15.5); WBC 5.8 k/uL (3.8-10.6)
[2020-12-13 15:01] LABS: ALT 17 U/L (4-34); AST 22 U/L (14-36); African American GFR (CKD) >90 (>60 ml/min/1.73 sqM); Albumin 4.4 g/dL (3.5-5.0); Alkaline Phosphatase 71 U/L (38-126); Amylase 79 U/L (30-110); Anion Gap 9 mmol/L; Blood Urea Nitrogen 7 mg/dL (7-17); Carbon Dioxide 22 mmol/L (22-30); Chloride 104 mmol/L (98-107); Glucose 87 mg/dL (74-99); Lipase 51 U/L (23-300); Non-African American GFR(CKD) >90 (>60 ml/min/1.73 sqM); Potassium 4.4 mmol/L (3.5-5.1); Sodium 135 mmol/L (137-145); Total Bilirubin 0.3 mg/dL (0.2-1.3); Total Protein 7.5 g/dL (6.3-8.2)
[2020-12-13 15:05] LABS: Appearance,Urine Cloudy (Clear); Bacteria,Urine Rare /hpf; Bilirubin,Urine Negative (Negative); Blood,Urine Negative (Negative); Color,Urine Yellow; Glucose,Urine (UA) Negative (Negative); Ketones,Urine 2+ (Negative); Leukocyte Esterase,Urine Negative (Negative); Mucus,Urine Few /hpf; Nitrite,Urine Negative (Negative); PH, Urine 6.5 (5.0-8.0); Protein,Urine 1+ (Negative); RBC,Urine 2 /hpf (0-5); Specific Gravity,Urine 1.034 (1.001-1.035); Squamous Epithelial Cell,Urine 23 /hpf (0-4); Urobilinogen,Urine <2.0 mg/dL (<2.0); WBC,Urine 2 /hpf (0-5)
[2020-12-13] MEDS ORDERED: ONDANSETRON 4 MG ODT STARTER PACK 2 TAB BTL PO STA (15:26)
--- NOTE | 2020-12-13 15:27 | ED ---
Abdominal Pain HPI - General Chief Complaint: Abdominal Pain Stated Complaint: back & Abd pain Time Seen by Provider: 12/13/20 13:53 Source: patient, RN notes reviewed Mode of arrival: ambulatory Limitations: no limitations - History of Present Illness Initial Comments: Patient is a 30-year-old female that presents to the emergency department complaining of generalized body aches and pains with some abdominal pain. She notes that she's had a difficult time eating and drinking over the last several weeks due to taking a bite in the not feeling hungry anymore. Patient states that she does not think she is at this time. She does note a history of irregular menstrual cycles. Patient did not appear to be in any pain or distress during the exam interview. She was a very pleasant individual. She denied any chest pain shortness of breath nausea vomiting diarrhea constipation fever fatigue chills. - Related Data Home Medications Medication Instructions Recorded Confirmed Uhi-Rqta-Twzgj Acid 1 cap PO DAILY 03/03/18 12/13/20 [-U Capsule (formulary)] Allergies Allergy/AdvReac Type Severity Reaction Status Date / Time cephalexin [From Keflex] Allergy Swelling Verified 12/13/20 15:02 Review of Systems ROS Statement: Those systems with pertinent positive or pertinent negative responses have been documented in the HPI. ROS Other: All systems not noted in ROS Statement are negative. Past Medical History Past Medical History: No Reported History Additional Past Medical History / Comment(s): CHLAMYDIA History of Any Multi-Drug Resistant Organisms: None Reported Past Surgical History: Section, Orthopedic Surgery Additional Past Surgical History / Comment(s): D & C x 2 Past Anesthesia/Blood Transfusion Reactions: Unable to Obtain Past Psychological History: Depression Smoking Status: Former smoker Past Alcohol Use History: None Reported Past Drug Use History: None Reported - Past Family History Mother Family Medical History: Hypertension General Exam Limitations: no limitations General appearance: alert, in no apparent distress Head exam: Present: atraumatic, normocephalic, normal inspection Eye exam: Present: normal appearance, PERRL, EOMI. Absent: scleral icterus, conjunctival injection, periorbital swelling ENT exam: Present: normal exam, mucous membranes moist Neck exam: Present: normal inspection Respiratory exam: Present: normal lung sounds bilaterally. Absent: respiratory distress, wheezes, rales, rhonchi, stridor Cardiovascular Exam: Present: regular rate, normal rhythm, normal heart sounds. Absent: systolic murmur, diastolic murmur, rubs, gallop, clicks GI/Abdominal exam: Present: soft, normal bowel sounds. Absent: distended, tenderness, guarding, rebound, rigid Extremities exam: Present: normal inspection, full ROM, normal capillary refill. Absent: tenderness, pedal edema, joint swelling, calf tenderness Neurological exam: Present: alert, oriented X3 Psychiatric exam: Present: normal affect, normal mood Skin exam: Present: warm, dry, intact, normal color. Absent: rash Course Vital Signs 12/13/20 13:36 Temperature 97.6 F Pulse Rate 97 Respiratory 18 Rate Blood Pressure 100/64 O2 Sat by Pulse 99 Oximetry Medical Decision Making - Medical Decision Making 30-year-old female complaining of generalized body aches and some abdominal pain. Labs, 15 mg of Toradol, 1 L normal saline, KUB ordered. Labs unremarkable him a mild dehydration. Urinalysis negative for UTI, positive for beta hCG. Patient was informed that her test is positive, chest or patient was apprised. Case discussed with Dr. Rust, she can discharge home with follow-up primary care and SURVEILLANCE SPECIALIST. - Lab Data Result diagrams: 12/13/20 14:32 12/13/20 14:32 Lab Results 12/13/20 12/13/20 12/13/20 Range/Units 14:32 14:32 14:32 WBC 5.8 (3.8-10.6) k/uL RBC 4.86 (3.80-5.40) m/uL Hgb 13.7 (11.4-16.0) gm/dL Hct 41.6 (34.0-46.0) % MCV 85.5 (80.0-100.0) fL MCH 28.2 (25.0-35.0) pg MCHC 32.9 (31.0-37.0) g/dL RDW 13.2 (11.5-15.5) % Plt Count 266 (150-450) k/uL MPV 7.0 Neutrophils % 62 % Lymphocytes % 28 % Monocytes % 5 % Eosinophils % 3 % Basophils % 1 % Neutrophils # 3.6 (1.3-7.7) k/uL Lymphocytes # 1.6 (1.0-4.8) k/uL Monocytes # 0.3 (0-1.0) k/uL Eosinophils # 0.2 (0-0.7) k/uL Basophils # 0.0 (0-0.2) k/uL Sodium (137-145) mmol/L Potassium (3.5-5.1) mmol/L Chloride (98-107) mmol/L Carbon Dioxide (22-30) mmol/L Anion Gap mmol/L BUN (7-17) mg/dL Creatinine (0.52-1.04) mg/dL Est GFR (CKD-EPI)AfAm (>60 ml/min/1.73 sqM) Est GFR (CKD-EPI)NonAf (>60 ml/min/1.73 sqM) Glucose (74-99) mg/dL Calcium (8.4-10.2) mg/dL Total Bilirubin (0.2-1.3) mg/dL AST (14-36) U/L ALT (4-34) U/L Alkaline Phosphatase (38-126) U/L Total Protein (6.3-8.2) g/dL Albumin (3.5-5.0) g/dL Amylase (30-110) U/L Lipase (23-300) U/L Urine Color Yellow Urine Appearance Cloudy H (Clear) Urine pH 6.5 (5.0-8.0) Ur Specific [place] 1.034 (1.001-1.035) Urine Protein 1+ H (Negative) Urine Glucose (UA) Negative (Negative) Urine Ketones 2+ H (Negative) Urine Blood Negative (Negative) Urine Nitrite Negative (Negative) Urine Bilirubin Negative (Negative) Urine Urobilinogen <2.0 (<2.0) mg/dL Ur Leukocyte Esterase Negative (Negative) Urine RBC 2 (0-5) /hpf Urine WBC 2 (0-5) /hpf Ur Squamous Epith Cells 23 H (0-4) /hpf Urine Bacteria Rare H (None) /hpf Urine Mucus Few H (None) /hpf Urine HCG, Qual Detected (Not Detectd) 12/13/20 Range/Units 14:32 WBC (3.8-10.6) k/uL RBC (3.80-5.40) m/uL Hgb (11.4-16.0) gm/dL Hct (34.0-46.0) % MCV (80.0-100.0) fL MCH (25.0-35.0) pg MCHC (31.0-37.0) g/dL RDW (11.5-15.5) % Plt Count (150-450) k/uL MPV Neutrophils % % Lymphocytes % % Monocytes % % Eosinophils % % Basophils % % Neutrophils # (1.3-7.7) k/uL Lymphocytes # (1.0-4.8) k/uL Monocytes # (0-1.0) k/uL Eosinophils # (0-0.7) k/uL Basophils # (0-0.2) k/uL Sodium 135 L (137-145) mmol/L Potassium 4.4 (3.5-5.1) mmol/L Chloride 104 (98-107) mmol/L Carbon Dioxide 22 (22-30) mmol/L Anion Gap 9 mmol/L BUN 7 (7-17) mg/dL Creatinine 0.62 (0.52-1.04) mg/dL Est GFR (CKD-EPI)AfAm >90 (>60 ml/min/1.73 sqM) Est GFR (CKD-EPI)NonAf >90 (>60 ml/min/1.73 sqM) Glucose 87 (74-99) mg/dL Calcium 10.0 (8.4-10.2) mg/dL Total Bilirubin 0.3 (0.2-1.3) mg/dL AST 22 (14-36) U/L ALT 17 (4-34) U/L Alkaline Phosphatase 71 (38-126) U/L Total Protein 7.5 (6.3-8.2) g/dL Albumin 4.4 (3.5-5.0) g/dL Amylase 79 (30-110) U/L Lipase 51 (23-300) U/L Urine Color Urine Appearance (Clear) Urine pH (5.0-8.0) Ur Specific [place] (1.001-1.035) Urine Protein (Negative) Urine Glucose (UA) (Negative) Urine Ketones (Negative) Urine Blood (Negative) Urine Nitrite (Negative) Urine Bilirubin (Negative) Urine Urobilinogen (<2.0) mg/dL Ur Leukocyte Esterase (Negative) Urine RBC (0-5) /hpf Urine WBC (0-5) /hpf Ur Squamous Epith Cells (0-4) /hpf Urine Bacteria (None) /hpf Urine Mucus (None) /hpf Urine HCG, Qual (Not Detectd) Disposition Clinical Impression: Abdominal pain, Disposition: HOME SELF-CARE Condition: Stable Instructions (If sedation given, give patient instructions): Abdominal Pain (ED) Additional Instructions: Please return to the Emergency Department if symptoms worsen or any other concerns. Take Zofran as prescribed. Follow-up with primary care and SURVEILLANCE SPECIALIST within the next several days. Increase oral fluids. Is patient prescribed a controlled substance at d/c from ED?: No Referrals: Cassy John MD [Primary Care Provider] - 1-2 days Time of Disposition: 15:27
[2020-12-13 15:45] VITALS: BP 108/70; PULSE 88
== END 2020-12-13 15:45 | disposition home or self-care (01) ==
LOC: EC 13:33
DX: O26.899 Other specified pregnancy related conditions, unspecified trimester (principal); R10.9 Unspecified abdominal pain; Z3A.00 Weeks of gestation of pregnancy not specified; Z87.891 Personal history of nicotine dependence; Z82.49 Family history of ischemic heart disease and other diseases of the circulatory system; Z88.1 Allergy status to other antibiotic agents
CPT/HCPCS: 96374; 96375; 96361; 36415; 80053; 82150; 83690; 85025; 81001; 81025; 99284; J2405; J1885; S0119

== ENCOUNTER → 2021-01-02 | Outpatient (CLI) | payer OTHER ==
--- NOTE | 2021-01-03 09:14 | US ---
EXAMINATION TYPE: Transabdominal DATE OF EXAM: 01/02/2021 3:48 PM COMPARISON: NONE CLINICAL HISTORY: Z36 confirm dates. dates EXAM PERFORMED: Transabdominal (TA) EXAM MEASUREMENTS: GESTATIONAL AGE / DATING Physician Established: Not yet established Dates by LMP: (9 weeks/2 days) EDC: 08/05/2021 Dates by First Scan: No previous this is first scan Dates by Current Scan for: (9 weeks/4 days) EDC: 08/03/2021 MATERNAL ANATOMY Uterus: 10.6 x 8.0 x 7.1 cm Right Ovary: 3.6 x 2.1 x 2.3 cm Left Ovary: 3.1 x 2.3 x 2.5 cm Post CDS / Adnexa: no Presence of free fluid: no Presence of corpus luteal cyst: right ovary= 2.1 x 2.1 x 1.9 cm GESTATION / SURVEY CRL: 2.7 cm (9 weeks/4 days) MSD: seen, not measured Yolk Sac (normal less than 6mm): No seen Heart Rate: 161 bpm Rhythm: Normal IUP: Viable IUP Age Appropriate Anatomy Limbs: Visualized Date of LMP: Beta HcG (if available): Not available at this time IMPRESSION: Single live IUP measuring 9 weeks 4 days
== END | disposition home or self-care (01) ==
LOC: RADUSWWP 15:26
PROVIDERS: ATTEND Obstetrics & Gynecology
DX: Z36.87 Encounter for antenatal screening for uncertain dates (principal)
CPT/HCPCS: 76801

== ENCOUNTER 2021-02-21 16:53 | Outpatient (CLI) | payer OTHER ==
[2021-02-21] MEDS ORDERED: ONDANSETRON 4 MG/2 ML VIAL IVP STA ×2 (17:00→17:24)
[2021-02-21] MEDS: DEXTROSE 5%-LACTATED RINGERS 1,000 ML IV SCH ×2 (17:10→18:04)
[2021-02-21 17:28] LABS: Basophils % (A) 0 %; Eosinophils # (A) 0.1 k/uL (0-0.7); Eosinophils % (A) 1 %; HCT 38.5 % (34.0-46.0); Lymphocytes # (A) 0.5 k/uL (1.0-4.8); Lymphocytes % (A) 9 %; MCHC 33.9 g/dL (31.0-37.0); MCV 88.5 fL (80.0-100.0); Mean Platelet Volume 8.2; Monocytes # (A) 0.3 k/uL (0-1.0); Monocytes % (A) 6 %; Neutrophils # (A) 4.8 k/uL (1.3-7.7); Neutrophils % (A) 83 %; Platelet Count 176 k/uL (150-450); RBC 4.35 m/uL (3.80-5.40); RDW 13.4 % (11.5-15.5); WBC 5.8 k/uL (3.8-10.6)
[2021-02-21 17:37] LABS: ALT 35 U/L (4-34); AST 45 U/L (14-36); African American GFR (CKD) >90 (>60 ml/min/1.73 sqM); Albumin 4.1 g/dL (3.5-5.0); Alkaline Phosphatase 65 U/L (38-126); Anion Gap 10 mmol/L; Blood Urea Nitrogen 7 mg/dL (7-17); Calcium 9.5 mg/dL (8.4-10.2); Carbon Dioxide 21 mmol/L (22-30); Chloride 101 mmol/L (98-107); Glucose 89 mg/dL (74-99); Non-African American GFR(CKD) >90 (>60 ml/min/1.73 sqM); Potassium 4.1 mmol/L (3.5-5.1); Sodium 132 mmol/L (137-145); Total Bilirubin 0.3 mg/dL (0.2-1.3); Total Protein 7.4 g/dL (6.3-8.2)
[2021-02-21] MEDS ORDERED: LACTATED RINGERS 1,000 ML IV SCH (17:45)
[2021-02-21 18:36] VITALS: BP 93/54; PULSE 110; RESP 16; TEMP 99.3
--- NOTE | 2021-02-21 18:51 | P.MSEPDOC ---
Presenting Problems - Arrival Data Date of Arrival on Unit: 02/21/21 Time of Arrival on Unit: 16:53 Mode of Transport: Wheelchair - Complaint OB-Reason for Admission/Chief Complaint: Acute Nausea/Vomiting Medical History - Information : 5 Para: 2 Term: 2 : 0 Abortions: Spontaneous or Elective: 1 Number of Living Children: 2 - Gestational Age Gestational Age by MARCELO (wks/days): 16 Weeks and 6 Days - History Complications: Prior Review of Systems - Review of Systems Constitutional: No problems Breast: No problems ENT: Cough, Nasal congestion Cardiovascular: No problems Respiratory: No problems Gastrointestinal: No problems Genitourinary: No problems Musculoskeletal: No problems Neurological: No problems Skin: No problems Comment: Nausea vomiting for 2.5 days, cough and congestion for 0.5 days Vital Signs - Temperature Temperature: 99.3 F Temperature Source: Oral - Pulse Left Brachial Pulse Rate: 110 Pulse Assessment Method: Automatic Cuff - Respirations Respiratory Rate: 16 Oxygen Delivery Method: Room Air O2 Sat by Pulse Oximetry: 94 - Blood Pressure Left Arm Blood Pressure: 93/54 Blood Pressure Mean: 67 Blood Pressure Source: Automatic Cuff Physician Notification - Physician Notified Physician Notified Date: 02/21/21 Physician Notified Time: 17:05 Physician: Alma Delia Krishna New Order Received: Yes - Notification Comment Comment: hydrate with D5LR, send cbc and cmp, swab for covid. Pt swab is positive. Dr. Krishna to bedside discussing plan of care/treatment of symptoms at home. Go to EC or call 911 if symptoms worsen Maternal Triage Index - Scheduled/Requesting Priority 5 Scheduled/Requesting Priority 5: Yes Criteria Met for Priority 5: sent from office for IV fluids and Zofran Disposition - Disposition OB Disposition: Triage, Discharge to home, Written follow up instructions reviewed I agree with the RN Medical Screening Exam: Yes Case reviewed; plan agreed upon as documented in EMR&OBIX.: Yes Comments: Patient was COVID positive. She was instructed to go directly home, isolate and quarantine. She was given a few liters of IV fluids and some Zofran IV. Patient feels like she just has a bad cold now and has not having any more vomiting. She was discharged home with instructions in how to care for herself with Covid during . I did, prior to discharge, consult with Dr. Light in the emergency room to ensure that she does not fit criteria for mono clonal antibodies. She does not fit criteria since monoclonal antibodies are not approved for women at this time. Patient was instructed that if her condition worsens she must return to the hospital emergency room. Diagnosis: COVID-19
== END 2021-02-21 19:23 | disposition home or self-care (01) ==
LOC: FBPOP 16:53
PROVIDERS: ATTEND Obstetrics & Gynecology
DX: O98.512 Other viral diseases complicating pregnancy, second trimester (principal); U07.1 COVID-19; Z3A.16 16 weeks gestation of pregnancy
CPT/HCPCS: 80053; 85025; 87635; J2405

== ENCOUNTER 2021-02-26 09:08 | Emergency (ER) | payer OTHER ==
[2021-02-26 09:39] VITALS: RESP 18; TEMP 98.9
[2021-02-26] MEDS ORDERED: SODIUM CHLORIDE 0.9% 2,000 ML IV ONE (10:23)
[2021-02-26] MEDS ORDERED: ACETAMINOPHEN TAB 500 MG TAB PO STA (10:23)
--- NOTE | 2021-02-26 10:41 | ED ---
General Adult HPI - General Chief complaint: Weakness Stated complaint: Covid+ Dizziness Time Seen by Provider: 02/26/21 09:27 Source: patient, RN notes reviewed Mode of arrival: wheelchair Limitations: no limitations - History of Present Illness Initial comments: This a 30-year-old female sent emergency from chief complaint of generalized weakness. Patient states she tested positive for Covid 5 days ago. She's had symptoms for 7 days she states that she just feels weak, achiness, fevers chills sweats. She is currently has no abdominal complaints no bleeding. Patient has not taken any recent Tylenol for her symptoms. 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 - Related Data Home Medications Medication Instructions Recorded Confirmed Blg-Rizd-Pjcru Acid 1 cap PO DAILY 03/03/18 02/21/21 [-U Capsule (formulary)] Allergies Allergy/AdvReac Type Severity Reaction Status Date / Time cephalexin [From Keflex] Allergy Swelling Verified 02/26/21 09:39 Review of Systems ROS Statement: Those systems with pertinent positive or pertinent negative responses have been documented in the HPI. ROS Other: All systems not noted in ROS Statement are negative. Past Medical History Past Medical History: No Reported History Additional Past Medical History / Comment(s): CHLAMYDIA History of Any Multi-Drug Resistant Organisms: None Reported Past Surgical History: Section, Orthopedic Surgery Additional Past Surgical History / Comment(s): D & C x 2 Past Anesthesia/Blood Transfusion Reactions: Unable to Obtain Past Psychological History: Depression Smoking Status: Former smoker Past Alcohol Use History: None Reported Past Drug Use History: Unable to Obtain - Past Family History Mother Family Medical History: Hypertension General Exam Limitations: no limitations General appearance: alert, in no apparent distress Head exam: Present: atraumatic, normocephalic, normal inspection Eye exam: Present: normal appearance, PERRL, EOMI. Absent: scleral icterus, conjunctival injection, periorbital swelling ENT exam: Present: normal exam, mucous membranes moist Neck exam: Present: normal inspection, full ROM. Absent: tenderness, meningismus, lymphadenopathy Respiratory exam: Present: normal lung sounds bilaterally. Absent: respiratory distress, wheezes, rales, rhonchi, stridor Cardiovascular Exam: Present: normal rhythm, tachycardia, normal heart sounds. Absent: systolic murmur, diastolic murmur, rubs, gallop, clicks GI/Abdominal exam: Present: soft, normal bowel sounds. Absent: distended, tenderness, guarding, rebound, rigid Back exam: Absent: CVA tenderness (R), CVA tenderness (L) Neurological exam: Present: alert Skin exam: Present: warm, dry, intact, normal color. Absent: rash Course Vital Signs 02/26/21 02/26/21 02/26/21 09:35 10:39 11:58 Temperature 98.9 F Pulse Rate 117 H 109 H Respiratory 18 18 18 Rate Blood Pressure 89/60 90/49 O2 Sat by Pulse 95 100 Oximetry Medical Decision Making - Medical Decision Making 30-year-old presented for COVID-19 in . Patient was hydrated she had 4+ ketones given 2 L she is tolerating oral intake she has no vomiting. We discussed taking Tylenol for her fever and the importance of this. She'll follow-up throat GM for recheck and return for any worsening change in symptoms. Patient receiving monoclonal antibodies. - Lab Data Result diagrams: 02/26/21 11:25 02/26/21 11:25 Lab Results 02/26/21 02/26/21 02/26/21 Range/Units 11:25 11:25 11:25 WBC 6.7 (3.8-10.6) k/uL RBC 4.47 (3.80-5.40) m/uL Hgb 13.1 (11.4-16.0) gm/dL Hct 38.1 (34.0-46.0) % MCV 85.2 (80.0-100.0) fL MCH 29.3 (25.0-35.0) pg MCHC 34.4 (31.0-37.0) g/dL RDW 13.7 (11.5-15.5) % Plt Count 144 L (150-450) k/uL MPV 8.8 Neutrophils % 80 % Lymphocytes % 14 % Monocytes % 3 % Eosinophils % 0 % Basophils % 0 % Neutrophils # 5.3 (1.3-7.7) k/uL Lymphocytes # 1.0 (1.0-4.8) k/uL Monocytes # 0.2 (0-1.0) k/uL Eosinophils # 0.0 (0-0.7) k/uL Basophils # 0.0 (0-0.2) k/uL Sodium 134 L (137-145) mmol/L Potassium 4.3 (3.5-5.1) mmol/L Chloride 102 (98-107) mmol/L Carbon Dioxide 24 (22-30) mmol/L Anion Gap 8 mmol/L BUN 7 (7-17) mg/dL Creatinine 0.57 (0.52-1.04) mg/dL Est GFR (CKD-EPI)AfAm >90 (>60 ml/min/1.73 sqM) Est GFR (CKD-EPI)NonAf >90 (>60 ml/min/1.73 sqM) Glucose 85 (74-99) mg/dL Calcium 9.0 (8.4-10.2) mg/dL Total Bilirubin 0.5 (0.2-1.3) mg/dL AST 62 H (14-36) U/L ALT 47 H (4-34) U/L Alkaline Phosphatase 83 (38-126) U/L Total Protein 6.9 (6.3-8.2) g/dL Albumin 3.6 (3.5-5.0) g/dL Urine Color Yellow Urine Appearance Cloudy H (Clear) Urine pH 6.0 (5.0-8.0) Ur Specific [place] 1.026 (1.001-1.035) Urine Protein 2+ H (Negative) Urine Glucose (UA) Negative (Negative) Urine Ketones 4+ H (Negative) Urine Blood Negative (Negative) Urine Nitrite Negative (Negative) Urine Bilirubin 1+ H (Negative) Urine Urobilinogen 6.0 (<2.0) mg/dL Ur Leukocyte Esterase Negative (Negative) Urine RBC 2 (0-5) /hpf Urine WBC 5 (0-5) /hpf Ur Squamous Epith Cells 11 H (0-4) /hpf Urine Bacteria Few H (None) /hpf Urine Mucus Few H (None) /hpf Disposition Clinical Impression: Dehydration, COVID-19 Disposition: HOME SELF-CARE Condition: Stable Instructions (If sedation given, give patient instructions): Coronavirus Disease 2019 (COVID-19) Additional Instructions: Please return to the Emergency Department if symptoms worsen or any other concerns. Is patient prescribed a controlled substance at d/c from ED?: No Referrals: Cassy John MD [Primary Care Provider] - 1-2 days Time of Disposition: 12:16
[2021-02-26] MEDS ORDERED: CASIRIVIMAB/IMDEVIMAB (EUA) 1,200 MG in SODIUM CHLORIDE 0.9% 100 ML IVPB ONE (11:30)
[2021-02-26 11:43] LABS: Basophils % (A) 0 %; Eosinophils % (A) 0 %; HCT 38.1 % (34.0-46.0); HGB 13.1 gm/dL (11.4-16.0); Lymphocytes % (A) 14 %; MCH 29.3 pg (25.0-35.0); MCHC 34.4 g/dL (31.0-37.0); MCV 85.2 fL (80.0-100.0); Mean Platelet Volume 8.8; Monocytes # (A) 0.2 k/uL (0-1.0); Monocytes % (A) 3 %; Neutrophils # (A) 5.3 k/uL (1.3-7.7); Neutrophils % (A) 80 %; Platelet Count 144 k/uL (150-450); RBC 4.47 m/uL (3.80-5.40); RDW 13.7 % (11.5-15.5); WBC 6.7 k/uL (3.8-10.6)
[2021-02-26 11:58] LABS: ALT 47 U/L (4-34); AST 62 U/L (14-36); African American GFR (CKD) >90 (>60 ml/min/1.73 sqM); Albumin 3.6 g/dL (3.5-5.0); Alkaline Phosphatase 83 U/L (38-126); Anion Gap 8 mmol/L; Blood Urea Nitrogen 7 mg/dL (7-17); Carbon Dioxide 24 mmol/L (22-30); Chloride 102 mmol/L (98-107); Glucose 85 mg/dL (74-99); Non-African American GFR(CKD) >90 (>60 ml/min/1.73 sqM); Potassium 4.3 mmol/L (3.5-5.1); Sodium 134 mmol/L (137-145); Total Bilirubin 0.5 mg/dL (0.2-1.3); Total Protein 6.9 g/dL (6.3-8.2)
[2021-02-26] MEDS ORDERED: SODIUM CHLORIDE 0.9% 50 ML IVPB ONE (12:00)
[2021-02-26 12:02] LABS: Appearance,Urine Cloudy (Clear); Bacteria,Urine Few /hpf; Bilirubin,Urine 1+ (Negative); Blood,Urine Negative (Negative); Color,Urine Yellow; Glucose,Urine (UA) Negative (Negative); Ketones,Urine 4+ (Negative); Leukocyte Esterase,Urine Negative (Negative); Mucus,Urine Few /hpf; Nitrite,Urine Negative (Negative); Protein,Urine 2+ (Negative); RBC,Urine 2 /hpf (0-5); Specific Gravity,Urine 1.026 (1.001-1.035); Squamous Epithelial Cell,Urine 11 /hpf (0-4); WBC,Urine 5 /hpf (0-5)
[2021-02-26 13:29] VITALS: PULSE 100
[2021-02-26 13:30] VITALS: BP 93/55
== END 2021-02-26 13:30 | disposition home or self-care (01) ==
LOC: EC 09:08
DX: O98.519 Other viral diseases complicating pregnancy, unspecified trimester (principal); O99.280 Endocrine, nutritional and metabolic diseases complicating pregnancy, unspecified trimester; U07.1 COVID-19; E86.0 Dehydration; Z3A.00 Weeks of gestation of pregnancy not specified; Z87.891 Personal history of nicotine dependence; Z88.1 Allergy status to other antibiotic agents
CPT/HCPCS: 36415; 80053; 85025; 81001; 99284; 96365; 96361; Q0243

== ENCOUNTER 2021-08-10 06:12 | Inpatient (IN) | payer OTHER ==
[2021-08-10] MEDS ORDERED: CITRIC ACID-SODIUM CITRATE 15 ML CUP PO ONE (06:43)
[2021-08-10] MEDS ORDERED: CLINDAMYCIN 900 MG in DEXTROSE 5% IN WATER 50 ML IVPB ONE ×2 (06:43)
[2021-08-10] MEDS: LACTATED RINGERS 1,000 ML IV SCH ×2 (07:29→12:41)
[2021-08-10 07:38] LABS: Basophils % (A) 0 %; Eosinophils # (A) 0.1 k/uL (0-0.7); Eosinophils % (A) 2 %; HCT 38.2 % (34.0-46.0); HGB 12.8 gm/dL (11.4-16.0); Lymphocytes # (A) 2.1 k/uL (1.0-4.8); Lymphocytes % (A) 26 %; MCH 29.9 pg (25.0-35.0); MCHC 33.5 g/dL (31.0-37.0); MCV 89.2 fL (80.0-100.0); Mean Platelet Volume 9.2; Monocytes # (A) 0.6 k/uL (0-1.0); Monocytes % (A) 7 %; Neutrophils # (A) 5.1 k/uL (1.3-7.7); Neutrophils % (A) 62 %; Platelet Count 183 k/uL (150-450); RBC 4.28 m/uL (3.80-5.40); RDW 14.7 % (11.5-15.5); WBC 8.1 k/uL (3.8-10.6)
[2021-08-10] MEDS ORDERED: DEXAMETHASONE SOD PHOSPHATE 4 MG/ML 1 ML VIAL ONE (07:51)
[2021-08-10] MEDS ORDERED: ONDANSETRON 4 MG/2 ML VIAL ONE (07:51)
[2021-08-10] MEDS ORDERED: PHENYLEPHRINE-0.9% NACL SYG 1,000 MCG/10 ML SYRINGE ONE (07:51)
[2021-08-10] MEDS ORDERED: KETOROLAC 15 MG/ML 1 ML VIAL ONE (07:51)
[2021-08-10] MEDS ORDERED: OXYTOCIN 30 UNITS/500 ML NS BAG IV ONE (07:51)
[2021-08-10] MEDS ORDERED: fentaNYL (PF) 50 MCG/ML 2 ML AMP ONE (07:51)
[2021-08-10] MEDS ORDERED: MORPHINE SULFATE (PF) 0.3 MG/0.3 ML SYR ONE (07:51)
[2021-08-10 07:57] LABS: Amphetamine Screen,Urine Not Detected (NotDetected); Barbiturate Screen,Urine Not Detected (NotDetected); Benzodiazepines Screen,Urine Not Detected (NotDetected); Cocaine Screen,Urine Not Detected (NotDetected); Methadone Screen, Urine Not Detected (NotDetected); Opiate Screen,Urine Not Detected (NotDetected); Oxycodone Screen, Urine Not Detected (NotDetected); Phencyclidine Screen,Urine Not Detected (NotDetected); Tricyclic Antidepressant,Urine Not Detected (NotDetected); Urn Cannabinoid Scrn Not Detected (NotDetected)
--- NOTE | 2021-08-10 08:34 | P.HPOB ---
History of Present Illness H&P Date: 08/10/21 Chief Complaint: repeat low transverse 30 year old presents at 40 weeks 5 days for repeat low transverse c- section. Past Medical History Past Medical History: No Reported History History of Any Multi-Drug Resistant Organisms: None Reported Past Surgical History: Section, Orthopedic Surgery Additional Past Surgical History / Comment(s): D&C x 2 Past Anesthesia/Blood Transfusion Reactions: No Reported Reaction Past Psychological History: Depression Smoking Status: Former smoker Past Alcohol Use History: None Reported Past Drug Use History: Unable to Obtain - Past Family History Mother Family Medical History: Hypertension Medications and Allergies Home Medications Medication Instructions Recorded Confirmed Type Ecm-Gkxi-Btijg Acid 1 cap PO DAILY 03/03/18 08/10/21 History [-U Capsule (formulary)] Acyclovir [Zovirax] 400 mg PO TID 08/10/21 08/10/21 History Allergies Allergy/AdvReac Type Severity Reaction Status Date / Time cephalexin [From Keflex] Allergy Swelling Verified 02/26/21 09:39 Exam Osteopathic Statement: *. No significant issues noted on an osteopathic structural exam other than those noted in the History and Physical/Consult. Vital Signs Temp Pulse Resp BP Pulse Ox 08/10/21 06:32 98.2 F 94 16 114/69 99 Intake and Output 08/09/21 08/10/21 08/10/21 22:59 06:59 14:59 Other: Weight 92.533 kg Heart: Regular rate and rhythm Lungs: Clear to auscultation bilaterally Abdomen: Soft, nontender Extremities: Negative Homans sign Results Result Diagrams: 08/10/21 07:00 Assessment and Plan (1) Previous section Current Visit: Yes Status: Acute Code(s): Z98.891 - HISTORY OF UTERINE SCAR FROM PREVIOUS SURGERY SNOMED Code(s): 202535212 (2) Post-term , 40-42 weeks of gestation Current Visit: Yes Status: Acute Code(s): O48.0 - POST-TERM SNOMED Code(s): 25787026981691 Plan: 1. repeat low transverse
[2021-08-10] MEDS ORDERED: diphenhydrAMINE 50 MG/ML 1 ML VIAL IVP PRN ×2 (08:37)
[2021-08-10] MEDS ORDERED: ZOLPIDEM 5 MG TAB PO PRN (08:37)
[2021-08-10] MEDS ORDERED: diphenhydrAMINE 25 MG CAP PO PRN (08:37)
[2021-08-10] MEDS ORDERED: METOCLOPRAMIDE 5 MG/ML 2 ML VIAL IVP PRN (08:37)
[2021-08-10] MEDS ORDERED: LANOLIN CREAM 5 GM TUBE TOPICAL PRN (08:37)
[2021-08-10] MEDS ORDERED: NALOXONE 0.4 MG/ML 1 ML VIAL IV PRN (08:37)
[2021-08-10] MEDS ORDERED: ONDANSETRON 4 MG/2 ML VIAL IVP PRN (08:37)
--- NOTE | 2021-08-10 08:37 | P.OP ---
Date of Procedure: 08/10/21 Preoperative Diagnosis: 1. at 40 weeks 5 days 2. previous Postoperative Diagnosis: same Procedure(s) Performed: Repeat low transverse Anesthesia: spinal Surgeon: Alma Delia Krishna Hand Ii Tube Bender #1: Sotero Light Estimated Blood Loss (ml): 500 IV fluids (ml): 1,100 Urine output (ml): 200 Pathology: none sent Condition: stable Disposition: floor Operative Findings: Viable male, Apgars 9, 9, weight 8 lbs. 3 oz. normal uterus and tubes and ovaries. Description of Procedure: Patient was taken to the operating room where spinal anesthesia was found be adequate. She was prepped and draped in normal sterile fashion in dorsal supine position with a leftward tilt. Pfannenstiel skin incision was made the scalpel and carried through to the underlying layer of fascia with the scalpel. Fascia was incised in midline and carried bilaterally with the Haq scissors. The superior aspect of the fascial incision was grasped with Colt clamps elevated and the underlying rectus muscles dissected off with the Haq's. Attention was then turned to inferior aspect of same incision which in a similar fashion was grasped tented up and the underlying rectus muscles dissected off with the Haq's. The rectus muscles were the midline and the peritoneum was identified tented up and entered sharply with the scalpel. The incision was extended superiorly and inferiorly with good visualization of the bladder. The bladder blade was inserted and the vesicouterine peritoneum was incised the Metzenbaums then carried bilaterally and bladder flap created digitally. A low transverse incision was then made on the uterus with the scalpel. This was carried bilaterally and digital manner. Infant's head delivered atraumatically, nose and mouth bulb suctioned, cord clamped and cut, infant handed off to waiting nurses. Apgars 9,9, weight 8 lbs. 3 oz. Placenta delivered manually, intact with three-vessel cord. The uterus is exteriorized and cleared of all clots and debris. The uterine incision was closed with 0 Vicryl in a running locked fashion. Second layer of the same sutures used in imbricating fashion to obtain excellent hemostasis. Both ovaries and tubes appeared normal. The uterus was placed back into the abdomen. The peritoneum was reapproximated using 2-0 Vicryl in a running fashion. The fascia was reapproximated using 0 Vicryl in a running fashion. The subcutaneous tissues closed with 3-0 Vicryl running fashion. The skin was closed candido. Patient tolerated the procedure well, sponge and instrument counts were correct times 2 and she was taken to the recovery room in stable condition.
[2021-08-10] MEDS ORDERED: OXYTOCIN 30 UNITS/500 ML NS 30 UNIT in SALINE 1 500ML.BAG IV SCH (08:45)
[2021-08-10] MEDS: diphenhydrAMINE 50 MG CAP PO PRN ×2 (11:54→18:08)
[2021-08-10] MEDS: ACETAMINOPHEN TAB 500 MG TAB PO SCH ×2 (11:57→19:43)
[2021-08-10] MEDS: KETOROLAC 30 MG/ML 1 ML VIAL IVP SCH (18:09)
[2021-08-10] MEDS ORDERED: NALBUPHINE 10 MG/ML (1 ML AMP) IV ONE (19:03)
[2021-08-10] MEDS: SENNOSIDES-DOCUSATE SODIUM 1 EACH TAB PO SCH (19:43)
[2021-08-11] MEDS: KETOROLAC 30 MG/ML 1 ML VIAL IVP SCH ×2 (00:35→08:27)
[2021-08-11] MEDS: ACETAMINOPHEN TAB 500 MG TAB PO SCH ×3 (04:12→19:39)
--- NOTE | 2021-08-11 05:24 | P.PNOBGPC ---
Subjective - Subjective Patient reports: Reports appetite normal, Reports voiding normally, Reports pain well controlled, Reports ambulating normally : doing well Objective - Vital Signs Latest vital signs: Vital Signs Temp Pulse Resp BP Pulse Ox 08/11/21 04:00 97.8 F 76 19 98/62 99 08/11/21 00:00 98.3 F 76 16 90/55 99 08/10/21 20:00 97.2 F L 76 17 100/64 98 08/10/21 16:00 98.3 F 67 14 99/61 08/10/21 12:00 98.1 F 72 16 92/56 99 08/10/21 10:35 72 16 88/53 99 08/10/21 10:05 98.1 F 76 16 89/52 99 08/10/21 09:35 79 16 98/54 98 08/10/21 09:20 83 16 94/55 98 08/10/21 09:05 70 16 94/55 98 08/10/21 08:50 79 18 95/50 97 08/10/21 08:35 98.0 F 81 16 94/52 98 08/10/21 06:32 98.2 F 94 16 114/69 99 Intake and Output 08/10/21 08/10/21 08/11/21 14:59 22:59 06:59 Intake Total 1000 480 Output Total 1035 800 Balance -35 -320 Intake: IV 1000 Oral 480 Output: Urine 200 800 Output, Quantitative 835 Blood Loss Other: # Voids 1 - Exam Lungs: bilateral: normal Chest: Normal S1, Normal S2 Extremities: Present: normal Abdomen: Present: normal appearance, soft. Absent: distention, tenderness Incision: Present: normal, dry, intact Uterus: Present: normal, firm Assessment and Plan Assessment: Postoperative day #1. Patient is resting and is having some gas pains but otherwise feeling well. Vital signs are stable and she is afebrile. Uterus is firm nontender and her incision is intact and dry. CBC is pending at time of this dictation. Patient is urinating on her own without difficulty. My impression is this is a normal postoperative course. Plan is to check a CBC, advance her diet, and allow the patient to shower. We will continue routine postoperative care. (1) Status post repeat low transverse section Current Visit: No Status: Acute Code(s): Z98.891 - HISTORY OF UTERINE SCAR FROM PREVIOUS SURGERY SNOMED Code(s): 137545387
[2021-08-11 08:09] LABS: Basophils % (A) 0 %; Eosinophils # (A) 0.1 k/uL (0-0.7); Eosinophils % (A) 1 %; HCT 35.6 % (34.0-46.0); HGB 11.6 gm/dL (11.4-16.0); Lymphocytes # (A) 2.1 k/uL (1.0-4.8); Lymphocytes % (A) 20 %; MCH 29.6 pg (25.0-35.0); MCHC 32.6 g/dL (31.0-37.0); MCV 90.7 fL (80.0-100.0); Mean Platelet Volume 9.9; Monocytes # (A) 0.6 k/uL (0-1.0); Monocytes % (A) 6 %; Neutrophils # (A) 7.5 k/uL (1.3-7.7); Neutrophils % (A) 72 %; Platelet Count 167 k/uL (150-450); RBC 3.92 m/uL (3.80-5.40); RDW 14.5 % (11.5-15.5); WBC 10.5 k/uL (3.8-10.6)
[2021-08-11] MEDS: IBUPROFEN 600 MG TAB PO PRN ×3 (08:25→23:53)
[2021-08-11] MEDS: SENNOSIDES-DOCUSATE SODIUM 1 EACH TAB PO SCH ×2 (08:25→20:15)
--- NOTE | 2021-08-11 13:43 | P.PN ---
Progress Note - Text Date: 08/11/2021 Time: 13:23 The patient is status post section Vital signs stable VAS:[ 0-10] Patient has no complaints of pain. The patient incurred some minimal itching yesterday, this itching is now subsiding. Pain meds to be managed by service.
[2021-08-11] MEDS: SIMETHICONE 80 MG CHEWABLE PO PRN ×2 (20:15→23:59)
[2021-08-12] MEDS: IBUPROFEN 600 MG TAB PO PRN ×2 (04:44→08:47)
[2021-08-12] MEDS: ACETAMINOPHEN TAB 500 MG TAB PO SCH (05:05)
--- NOTE | 2021-08-12 07:05 | P.PNOBGPC ---
Subjective - Subjective Patient reports: Reports appetite normal, Reports voiding normally, Reports pain well controlled, Reports ambulating normally : doing well Objective - Vital Signs Latest vital signs: Vital Signs Temp Pulse Resp BP Pulse Ox 08/12/21 00:00 98.4 F 94 19 94/56 100 08/11/21 16:00 98.2 F 68 16 126/72 08/11/21 08:00 98.3 F 82 16 132/71 Intake and Output 08/11/21 08/12/21 08/12/21 22:59 06:59 14:59 Intake Total 960 Balance 960 Intake: Oral 960 Other: # Voids 1 1 # Bowel Movements 1 - Exam Lungs: bilateral: normal Chest: Normal S1, Normal S2 Extremities: Present: normal Abdomen: Present: normal appearance, soft. Absent: distention, tenderness Incision: Present: normal, dry, intact Uterus: Present: normal, firm Assessment and Plan Assessment: Postoperative day #2. Patient is resting without complaints and wishes to go home. Vital signs are stable she is afebrile. Uterus is firm nontender and she is having normal lochia. Incision is intact and dry. Patient is tolerating regular diet, urinating, ambulating without difficulty. Plan today is to continue routine postoperative care discharge home later this morning. (1) Status post repeat low transverse section Current Visit: No Status: Acute Code(s): Z98.891 - HISTORY OF UTERINE SCAR FROM PREVIOUS SURGERY SNOMED Code(s): 502727662
--- NOTE | 2021-08-12 07:10 | P.DS ---
Providers Date of admission: 08/10/21 06:12 Expected date of discharge: 08/12/21 Attending physician: Alma Delia Krishna Primary care physician: Stated None - Discharge Diagnosis(es) (1) Status post repeat low transverse section Current Visit: No Status: Acute Hospital Course: Please see dictated H&P for intimate details on this patient's admission. Brief summary this is a pleasant 30-year-old 5 para 2 female 40-5/7 weeks gestation admitted to labor and delivery for elective repeat section. She is admitted she undergoes above-named surgery for viable male infant. Please see dictated operative note. Postoperative #2 patient's felt be stable for discharge home follow up with Dr. Krishna in 1 week. Procedures: Repeat low transverse section Patient Condition at Discharge: Good Plan - Discharge Summary New Discharge Prescriptions: New Ibuprofen [Motrin] 600 mg PO Q6H PRN #30 tab PRN Reason: Pain oxyCODONE HCL [OxyIR] 5 mg PO Q4HR PRN #18 tab PRN Reason: Pain No Action Kxh-Wwqm-Meoji Acid [-U Capsule (formulary)] 1 cap PO DAILY Acyclovir [Zovirax] 400 mg PO TID Discharge Medication List Ium-Cilt-Qpvcq Acid [-U Capsule (formulary)] 1 cap PO DAILY 03/03/18 [History] Acyclovir [Zovirax] 400 mg PO TID 08/10/21 [History] Ibuprofen [Motrin] 600 mg PO Q6H PRN #30 tab 08/11/21 [Rx] oxyCODONE HCL [OxyIR] 5 mg PO Q4HR PRN #18 tab 08/11/21 [Rx] Patient Instructions/Handouts: (DC) Activity/Diet/Wound Care/Special Instructions: No strenuous activity or heavy lifting for 6 weeks. No intercourse or anything per vagina for 6 weeks. Please call if any fever, chills, excessive vaginal bleeding, and/or abdominal pain Discharge Disposition: HOME SELF-CARE
[2021-08-12 08:15] VITALS: BP 105/67; PULSE 80; RESP 14; TEMP 98.1
[2021-08-12] MEDS: SIMETHICONE 80 MG CHEWABLE PO PRN (08:48)
== END 2021-08-12 10:26 | disposition home or self-care (01) | DRG 788 ==
LOC: 4FBP 06:12
PROVIDERS: ADMIT Obstetrics & Gynecology; ATTEND Obstetrics & Gynecology
PROC: 10D00Z1 Extraction of Products of Conception, Low, Open Approach (ICD-10-PCS; principal; 2021-08-10 08:00)
DX: O34.211 Maternal care for low transverse scar from previous cesarean delivery (principal); O48.0 Post-term pregnancy; F32.A Depression, unspecified; O99.344 Other mental disorders complicating childbirth; Z37.0 Single live birth; O99.73 Diseases of the skin and subcutaneous tissue complicating the puerperium; L29.9 Pruritus, unspecified; Z3A.40 40 weeks gestation of pregnancy; Z87.891 Personal history of nicotine dependence; Z88.1 Allergy status to other antibiotic agents
CPT/HCPCS: 80306; 85025; 86850; 86900; 86901

== ENCOUNTER 2022-04-15 02:52 | Emergency (ER) | payer OTHER ==
[2022-04-15 03:08] VITALS: RESP 18
[2022-04-15] MEDS ORDERED: AMOXIC-POT CLAV 875-125MG 1 EACH TAB PO STA (03:23)
[2022-04-15] MEDS ORDERED: IBUPROFEN 800 MG TAB PO STA (03:28)
--- NOTE | 2022-04-15 03:28 | ED ---
General Adult HPI - General Chief complaint: Recheck/Abnormal Lab/Rx Stated complaint: Body Chills Time Seen by Provider: 04/15/22 03:01 Source: patient, RN notes reviewed Mode of arrival: ambulatory Limitations: no limitations - History of Present Illness Initial comments: This is a 31-year-old female who presents to the emergency department for chills and breast pain. Yesterday she started to develop chills with associated coughing and congestion. When she was breast-feeding today, she started to have pain to the right breast and has since had increasing discomfort to that area. She has stopped breast-feeding on that side due to the pain. Her son is 8 months old and she has been breast-feeding him since he was born. Denies any history of similar symptoms in the past. She does have 2 other children and never had any problems with breast-feeding. Denies any sick contacts. Denies any fevers, sore throat, chest pain, palpitations, abdominal pain, nausea, vomiting, diarrhea, back pain, or headaches. MD Complaint: chills and breast pain Onset/Timin -: days(s) Associated Symptoms: cough - Related Data Home Medications Medication Instructions Recorded Confirmed Lwq-Gszh-Nyjkr Acid 1 cap PO DAILY 03/03/18 08/10/21 [-U Capsule (formulary)] Acyclovir [Zovirax] 400 mg PO TID 08/10/21 08/10/21 Previous Rx's Medication Instructions Recorded Ibuprofen [Motrin] 600 mg PO Q6H PRN #30 tab 08/11/21 oxyCODONE HCL [OxyIR] 5 mg PO Q4HR PRN #18 tab 08/11/21 Amoxicillin/Potassium Clav 1 tab PO Q12HR #20 tab 10/17/21 [Augmentin 875-125 Tablet] Amoxic-Pot Clav 875-125Mg 1 tab PO Q12HR 10 Days #20 tab 04/15/22 [Augmentin 875-125] Allergies Allergy/AdvReac Type Severity Reaction Status Date / Time cephalexin [From Keflex] Allergy Swelling Verified 04/15/22 03:08 Review of Systems ROS Statement: Those systems with pertinent positive or pertinent negative responses have been documented in the HPI. ROS Other: All systems not noted in ROS Statement are negative. Past Medical History Past Medical History: No Reported History Additional Past Medical History / Comment(s): CHLAMYDIA History of Any Multi-Drug Resistant Organisms: None Reported Past Surgical History: Section, Orthopedic Surgery Additional Past Surgical History / Comment(s): D&C x 2 Past Anesthesia/Blood Transfusion Reactions: No Reported Reaction Past Psychological History: No Psychological Hx Reported Smoking Status: Former smoker Past Alcohol Use History: None Reported Past Drug Use History: None Reported - Past Family History Mother Family Medical History: Hypertension General Exam Limitations: no limitations General appearance: alert, in no apparent distress Head exam: Present: atraumatic, normocephalic, normal inspection Respiratory exam: Present: normal lung sounds bilaterally. Absent: respiratory distress, wheezes, rales, rhonchi, stridor Cardiovascular Exam: Present: regular rate, normal rhythm, normal heart sounds. Absent: systolic murmur, diastolic murmur, rubs, gallop, clicks Neurological exam: Present: alert, oriented X3, CN II-XII intact Psychiatric exam: Present: normal affect, normal mood Skin exam: Present: other (Tenderness, mild swelling and erythema to the right breast. No discharge from the nipple or palpable abscess.) Course Vital Signs 04/15/22 03:06 Temperature 99.4 F Pulse Rate 100 Respiratory 18 Rate Blood Pressure 101/65 O2 Sat by Pulse 96 Oximetry Medical Decision Making - Medical Decision Making This is a 31-year-old female who presents to the emergency department for chills, breast pain, and coughing. COVID and influenza testing were negative. Symptoms are concerning for mastitis with regards to the pain and chills. She was in the emergency department overnight and ultrasound was not available for further evaluation of a possible mastitis. Based on physical exam findings, will treat the patient for mastitis. Temperature is mildly elevated at 99.4 degrees F. She was given a dose of Augmentin and Ibuprofen in the emergency department. Rx for Augmentin provided to be taken for 10 days. Instructed her to continue breast feeding, to apply warm compresses, massage the breast, and wear a supportive bra. Advised ibuprofen and Tylenol for pain relief. Return precautions reviewed in depth, the patient is instructed to return to the emergency department with any new, worsening, or concerning symptoms. Patient verbalized understanding. This case was discussed in detail with the attending ED physician. Presentation, findings, and treatment plan discussed in detail as well. - Lab Data Lab Results 04/15/22 04/15/22 Range/Units 03:21 03:21 Coronavirus (PCR) Not Detected (Not Detectd) Influenza Type A RNA Not Detected (Not Detectd) Influenza Type B (PCR) Not Detected (Not Detectd) Disposition Clinical Impression: Mastitis Disposition: HOME SELF-CARE Instructions (If sedation given, give patient instructions): Mastitis (ED) Additional Instructions: Return to the emergency department with any new, worsening, or concerning symptoms. Take the antibiotic twice daily for 10 days. Apply warm compresses, massage the breast, and wear a supportive bra. Make sure that you continue to breast-feed. Alternate with ibuprofen and Tylenol for pain relief. Follow up with your primary care provider in 1-2 days. Prescriptions: Amoxic-Pot Clav 875-125Mg [Augmentin 875-125] 1 tab PO Q12HR 10 Days #20 tab Is patient prescribed a controlled substance at d/c from ED?: No Referrals: Cassy John MD [Primary Care Provider] - 1-2 days
[2022-04-15] MEDS ORDERED: AMOXIC-POT CLAV 875MG STARTER PACK 2 TAB BTL PO STA (03:53)
[2022-04-15] MEDS ORDERED: IBUPROFEN 600 MG STARTER PACK 4 TAB BTL PO STA (03:53)
[2022-04-15 04:09] VITALS: BP 100/98; PULSE 98; TEMP 99.5
== END 2022-04-15 04:08 | disposition home or self-care (01) ==
LOC: EC 02:52
DX: N61.0 Mastitis without abscess (principal); Z87.891 Personal history of nicotine dependence; Z88.1 Allergy status to other antibiotic agents; Z20.822 Contact with and (suspected) exposure to COVID-19
CPT/HCPCS: 87502; 87635; 99283

== ENCOUNTER 2022-06-19 08:41 | Emergency (ER) | payer OTHER ==
[2022-06-19] MEDS ORDERED: IBUPROFEN 600 MG TAB PO STA (08:50)
[2022-06-19] MEDS ORDERED: ACETAMINOPHEN TAB 325 MG TAB PO STA (08:50)
--- NOTE | 2022-06-19 08:58 | ED ---
URI HPI - General Chief Complaint: Upper Respiratory Infection Stated Complaint: headache, nausea Time Seen by Provider: 06/19/22 08:47 Source: patient, RN notes reviewed, old records reviewed Mode of arrival: ambulatory Limitations: no limitations - History of Present Illness Initial Comments: This is a nontoxic appearing 31-year-old female who presents to the emergency room with fever chills and body aches that started last night. No known sick contacts. No Tylenol or Motrin today. Did have nausea which has resolved. Denies any medical history. She states that she does vape daily. MD Complaint: fever, other (body aches) -: days(s) (1) Severity scale (1-10): 8 Quality: aching Consistency: constant Improves With: nothing Associated Symptoms: fever, chills, myalgias, headache Treatments Prior to Arrival: none - Related Data Home Medications Medication Instructions Recorded Confirmed Nou-Aaul-Jwywo Acid 1 cap PO DAILY 03/03/18 08/10/21 [-U Capsule (formulary)] Acyclovir [Zovirax] 400 mg PO TID 08/10/21 08/10/21 Previous Rx's Medication Instructions Recorded Ibuprofen [Motrin] 600 mg PO Q6H PRN #30 tab 08/11/21 oxyCODONE HCL [OxyIR] 5 mg PO Q4HR PRN #18 tab 08/11/21 Amoxicillin/Potassium Clav 1 tab PO Q12HR #20 tab 10/17/21 [Augmentin 875-125 Tablet] Amoxic-Pot Clav 875-125Mg 1 tab PO Q12HR 10 Days #20 tab 04/15/22 [Augmentin 875-125] Allergies Allergy/AdvReac Type Severity Reaction Status Date / Time cephalexin [From Keflex] Allergy Swelling Verified 06/19/22 08:47 Review of Systems ROS Statement: Those systems with pertinent positive or pertinent negative responses have been documented in the HPI. ROS Other: All systems not noted in ROS Statement are negative. Past Medical History Past Medical History: No Reported History Additional Past Medical History / Comment(s): CHLAMYDIA History of Any Multi-Drug Resistant Organisms: None Reported Past Surgical History: Section, Orthopedic Surgery Additional Past Surgical History / Comment(s): D&C x 2 Past Anesthesia/Blood Transfusion Reactions: No Reported Reaction Past Psychological History: No Psychological Hx Reported Smoking Status: Current every day smoker, Vaper Past Alcohol Use History: Occasional Past Drug Use History: Marijuana - Past Family History Mother Family Medical History: Hypertension General Exam Limitations: no limitations General appearance: alert, in no apparent distress Head exam: Present: atraumatic Neck exam: Present: full ROM. Absent: tenderness, meningismus Respiratory exam: Present: normal lung sounds bilaterally. Absent: respiratory distress, wheezes, rales, rhonchi, stridor, chest wall tenderness, accessory muscle use Cardiovascular Exam: Present: tachycardia GI/Abdominal exam: Present: soft. Absent: rigid Extremities exam: Present: normal capillary refill. Absent: pedal edema Back exam: Present: full ROM. Absent: tenderness, rash noted Neurological exam: Present: alert, oriented X3 Psychiatric exam: Present: normal affect, normal mood Skin exam: Present: warm, dry, normal color. Absent: rash, cyanosis, diaphoretic, petechiae, pallor, mottled Course Vital Signs 06/19/22 06/19/22 06/19/22 08:42 09:46 10:35 Temperature 101.1 F H 99.5 F Pulse Rate 132 H 95 Respiratory 22 16 Rate Blood Pressure 107/63 98/61 O2 Sat by Pulse 96 100 Oximetry Medical Decision Making - Medical Decision Making X-ray interpreted by me shows no evidence of focal consolidation. Radiologist interpretation no acute pulmonary process. Influenza and coronavirus swabs are negative. Patient denies any abdominal pain. Abdomen is soft and nontender. Lungs sounds are clear to auscultation. Patient was given Tylenol and Motrin with resolution of her body aches and fevers. Vital signs are stable. This is likely a viral illness. Patient was discharged home feeling much better. Directed to increase her fluid intake. Tylenol Motrin as needed for any fevers or discomfort. Follow-up with primary care doctor and return to the emergency room with any new or concerning symptoms. She is agreeable to this plan of care. Case discussed with Dr. Rust Was pt. sent in by a medical professional or institution? @ -No Did you speak to anyone other than the patient for history? @ -No Did you review nursing and triage notes? @ -Yes I agree Were old charts reviewed? @ -no Differential Diagnosis? @ -Differential Fever: Pneumonia, viral URI, otitis, sinusitis, peritonsillar Abscess, meningitis, encephalitis, this is not meant to be an all-inclusive list. X-rays interpreted by me (1pt min.)? @ -Yes as above What testing was considered but not performed? (CT, X-rays, U/S, labs)? Why? @ Urinalysis was considered patient denies any dysuria or abdominal pain What meds were considered but not given? Why? @ -Antibiotics were considered however there is no evidence of bacterial infection this is likely viral in nature. Did you discuss the management of the patient with other professionals? @ -No Did you reconcile home meds? @ -No Was smoking cessation discussed for >3mins.? @ -Yes Was critical care preformed (if so, how long)? @ -no Were there social determinants of health that impacted care today? How? (Homelessness, low income, unemployed, alcoholism, drug addiction, transportation, low edu. Level, literacy, decrease access to med. care, residential, rehab)? @ -None Was there de-escalation of care discussed even if they declined? (Discuss DNR or withdrawal of care, Hospice)? @ -No What co-morbidities impacted this encounter? (DM, HTN, Smoking, COPD, CAD, Cancer, CVA, Hep., AIDS, mental health diagnosis, sleep apnea, morbid obesity)? @ -None Was patient admitted / discharged? @ -Discharged Undiagnosed new problem with uncertain prognosis? @ -[none] Drug Therapy requiring intensive monitoring for toxicity (Heparin, Nitro, Insulin, Cardizem)? @ -None Were any procedures done? @ -No Diagnosis/symptom? @ -Viral syndrome Acute, or Chronic, or Acute on Chronic? @ -Acute Uncomplicated (without systemic symptoms) or Complicated (systemic symptoms)? @ -[default] Side effects of treatment? @ -[none] Exacerbation, Progression, or Severe Exacerbation] @ -[no] Poses a threat to life or bodily function? @ -[no] - Lab Data Lab Results 06/19/22 Range/Units 08:51 Influenza Type A (PCR) Not Detected (Not Detectd) Influenza Type B (PCR) Not Detected (Not Detectd) RSV (PCR) Not Detected (Not Detectd) SARS-CoV-2 (PCR) Not Detected (Not Detectd) Disposition Clinical Impression: Viral illness Disposition: HOME SELF-CARE Condition: Good Instructions (If sedation given, give patient instructions): Viral Syndrome (ED) Additional Instructions: Increase your fluid intake. Stop vaping. Tylenol and or Motrin as needed for pain, fevers or discomfort. Self quarantine while symptomatic. Return with any new or concerning symptoms. Is patient prescribed a controlled substance at d/c from ED?: No Referrals: Cassy John MD [Primary Care Provider] - 1-2 days Time of Disposition: 11:18
[2022-06-19 09:46] VITALS: TEMP 99.5
[2022-06-19 10:35] VITALS: BP 98/61; PULSE 95; RESP 16
--- NOTE | 2022-06-19 11:05 | XR ---
EXAMINATION TYPE: XR chest 2V DATE OF EXAM: 06/19/2022 COMPARISON: 10/17/2021 INDICATION: Fever chest pain and headache TECHNIQUE: Frontal and lateral views of the chest are obtained. FINDINGS: The heart size is normal. The pulmonary vasculature is normal. The lungs are clear. IMPRESSION: 1. No acute pulmonary process.
== END 2022-06-19 11:37 | disposition home or self-care (01) ==
LOC: EC 08:41
DX: R51.9 Headache, unspecified (principal); B34.9 Viral infection, unspecified; F17.290 Nicotine dependence, other tobacco product, uncomplicated; F12.90 Cannabis use, unspecified, uncomplicated; Z88.1 Allergy status to other antibiotic agents; Z20.822 Contact with and (suspected) exposure to COVID-19
CPT/HCPCS: 71046; 87636; 99284

== ENCOUNTER 2022-11-24 20:35 | Emergency (ER) | payer OTHER ==
[2022-11-24 20:49] VITALS: TEMP 98.6
--- NOTE | 2022-11-24 21:12 | ED ---
General Adult HPI - General Chief complaint: Upper Respiratory Infection Stated complaint: vomiting,fever Time Seen by Provider: 11/24/22 20:50 Source: patient, RN notes reviewed Mode of arrival: ambulatory Limitations: no limitations - History of Present Illness Initial comments: 31-year-old -Malaysian female with a past medical history significant for chlamydia presents to the emergency department with a chief complaint of vaginal irritation for 6 days. Patient reports she was seen at [facility] which she had a full STD panel performed. She reports that her results were all negative. She reports that she took 5 days of vaginal and cervical Flagyl on include vaginal irritation and discharge. She denies any recent new sexual partners. Denies fever, chills, hematuria. - Related Data Home Medications Medication Instructions Recorded Confirmed [id number] Acid 1 cap PO DAILY 03/03/18 08/10/21 [-U Capsule (formulary)] Acyclovir [Zovirax] 400 mg PO TID 08/10/21 08/10/21 Previous Rx's Medication Instructions Recorded Ibuprofen [Motrin] 600 mg PO Q6H PRN #30 tab 08/11/21 oxyCODONE HCL [OxyIR] 5 mg PO Q4HR PRN #18 tab 08/11/21 Amoxicillin/Potassium Clav 1 tab PO Q12HR #20 tab 10/17/21 [Augmentin 875-125 Tablet] Amoxic-Pot Clav 875-125Mg 1 tab PO Q12HR 10 Days #20 tab 04/15/22 [Augmentin 875-125] Fluconazole [Diflucan] 150 mg PO ONCE #1 tab 11/24/22 Allergies Allergy/AdvReac Type Severity Reaction Status Date / Time cephalexin [From Keflex] Allergy Swelling Verified 11/24/22 20:45 Review of Systems ROS Statement: Those systems with pertinent positive or pertinent negative responses have been documented in the HPI. ROS Other: All systems not noted in ROS Statement are negative. Past Medical History Past Medical History: No Reported History Additional Past Medical History / Comment(s): CHLAMYDIA History of Any Multi-Drug Resistant Organisms: None Reported Past Surgical History: Section, Orthopedic Surgery Additional Past Surgical History / Comment(s): D&C x 2, finger Past Anesthesia/Blood Transfusion Reactions: No Reported Reaction Past Psychological History: No Psychological Hx Reported Smoking Status: Vaper Past Alcohol Use History: Occasional Past Drug Use History: Marijuana - Past Family History Mother Family Medical History: Hypertension General Exam - General Exam Comments Initial Comments: General: Alert, in no acute distress Head: atraumatic normocephalic. Eyes PERRL, EOMI intact, mucous membranes moist Respiratory: Lungs clear to auscultation bilaterally Cardiovascular: Rate regular rate and rhythm Abdominal: Soft without guarding or rebound Extremities: Normal inspection with full range of motion and normal capillary refill Neuroogic: alert and oriented 3, CN II-XII intact, able to ambulate with steady gait Skin: warm dry and intact with normal color external exam is without any rashes, lesions, erythema. Vaginal canal with thick clumpy discharge Cervical os is visualized and is closed. There is no cervical motion tenderness for abnormal adnexal tenderness. Pelvic exam performed with associate professor of physics, LEANDER Lee present. Limitations: no limitations Course Vital Signs 11/24/22 11/24/22 20:45 21:44 Temperature 98.6 F Pulse Rate 80 82 Respiratory 16 18 Rate Blood Pressure 101/64 96/52 O2 Sat by Pulse 99 100 Oximetry - Reevaluation(s) Reevaluation #1: 11/24/22 21:11 Initial history and physical exam were performed. Patient was offered prophylactic STD treatment, she declined. Medical Decision Making - Medical Decision Making Was pt. sent in by a medical professional or institution (SUSHIL Mckeon, PROJECT SCHEDULER, urgent care, hospital, or [facility]...) When possible be specific @ -[No] Did you speak to anyone other than the patient for history (EMS, parent, family, police, friend...)? What history was obtained from this source @ -[No] Did you review nursing and triage notes (agree or disagree)? Why? @ -[I reviewed and agree with nursing and triage notes] Were old charts reviewed (outside hosp., previous admission, EMS record, old EKG, old radiological studies, urgent care reports/EKG's, [facility] records)? Report findings @ -[No old charts were reviewed] Differential Diagnosis (chest pain, altered mental status, abdominal pain women, abdominal pain men, vaginal bleeding, weakness, fever, dyspnea, syncope, headache, dizziness, GI bleed, back pain, seizure, CVA, palpatations, mental health, musculoskeletal)? @ -[not applicable] EKG interpreted by me (3pts min.). @ -[As above] X-rays interpreted by me (1pt min.). @ -[None done] CT interpreted by me (1pt min.). @ -[None done] U/S interpreted by me (1pt. min.). @ -[None done] What testing was considered but not performed or refused? (CT, X-rays, U/S, labs)? Why? @ -[None] What meds were considered but not given or refused? Why? @ -[None] Did you discuss the management of the patient with other professionals (professionals i.e. , PA, PROJECT SCHEDULER, lab, RT, psych nurse, social work job titles, forest ranger, teacher, second officer, case advocate)? Give summary @ -[No] Was smoking cessation discussed for >3mins.? @ -[No] Was critical care preformed (if so, how long)? @ -[No] Were there social determinants of health that impacted care today? How? (Homelessness, low income, unemployed, alcoholism, drug addiction, transportation, low edu. Level, literacy, decrease access to med. care, prison, rehab)? @ -[No] Was there de-escalation of care discussed even if they declined (Discuss DNR or withdrawal of care, Hospice)? DNR status @ -[No] What co-morbidities impacted this encounter? (DM, HTN, Smoking, COPD, CAD, Cancer, CVA, ARF, Chemo, Hep., AIDS, mental health diagnosis, sleep apnea, morbid obesity)? @ -[None] Was patient admitted / discharged? Hospital course, mention meds given and route, prescriptions, significant lab abnormalities, going to OR and other pertinent info. @ -Discharged. This is a 31-year-old -Mal[place]ian female who presents to the emergency department with vaginal irritation. Patient had a history and physical performed. physical exam is consistent with vaginal yeast infection. Patient was offered STD treatment prophylactically to which she declined. Patient given Diflucan. Patient discharged in stable condition. Return precautions were discussed. Discussed with Dr. Sharma, who agrees with plan of care. Undiagnosed new problem with uncertain prognosis? @ -[No] Drug Therapy requiring intensive monitoring for toxicity (Heparin, Nitro, Insulin, Cardizem)? @ -[No] Were any procedures done? @ -[No] Diagnosis/symptom? @ -Vaginal yeast infection Acute, or Chronic, or Acute on Chronic? @ -acute Uncomplicated (without systemic symptoms) or Complicated (systemic symptoms)? @ -uncomplicated Side effects of treatment? @ -[No] Exacerbation, Progression, or Severe Exacerbation? @ -[No] Poses a threat to life or bodily function? How? (Chest pain, [place], [place], pneumonia, PE, COPD, DKA, ARF, appy, cholecystitis, CVA, Diverticulitis, Homicidal, Suicidal, threat to staff... and all critical care pts) @ -low likelihood - Lab Data Lab Results 11/24/22 11/24/22 11/24/22 Range/Units 21:24 21:43 21:43 Urine Color Yellow Urine Appearance Cloudy H (Clear) Urine pH 6.0 (5.0-8.0) Ur Specific [place] 1.031 (1.001-1.035) Urine Protein Trace H (Negative) Urine Glucose (UA) Negative (Negative) Urine Ketones Trace H (Negative) Urine Blood Small H (Negative) Urine Nitrite Negative (Negative) Urine Bilirubin Negative (Negative) Urine Urobilinogen <2.0 (<2.0) mg/dL Ur Leukocyte Esterase Large H (Negative) Urine RBC 19 H (0-5) /hpf Urine WBC 24 H (0-5) /hpf Ur Squamous Epith Cells 6 H (0-4) /hpf Hyaline Casts 4 H (0-2) /lpf Urine Mucus Moderate H (None) /hpf Urine HCG, Qual Not Detected (Not Detectd) Trichomonas Ag (Rapid) Negative (Negative) Disposition Clinical Impression: Yeast infection Disposition: HOME SELF-CARE Condition: Stable Instructions (If sedation given, give patient instructions): Yeast Infection (ED) Additional Instructions: These return to the nearest emergency department symptoms worsen or persist Prescriptions: Fluconazole [Diflucan] 150 mg PO ONCE #1 tab Is patient prescribed a controlled substance at d/c from ED?: No Referrals: Cassy John MD [Primary Care Provider] - 1-2 days Time of Disposition: 21:23
[2022-11-24] MEDS ORDERED: FLUCONAZOLE 150 MG TAB PO STA (21:24)
[2022-11-24 21:49] VITALS: BP 96/52; PULSE 82; RESP 18
[2022-11-24 22:22] LABS: Appearance,Urine Cloudy (Clear); Bilirubin,Urine Negative (Negative); Blood,Urine Small (Negative); Color,Urine Yellow; Glucose,Urine (UA) Negative (Negative); Hyaline Casts,Urine 4 /lpf (0-2); Ketones,Urine Trace (Negative); Leukocyte Esterase,Urine Large (Negative); Mucus,Urine Moderate /hpf; Nitrite,Urine Negative (Negative); Protein,Urine Trace (Negative); RBC,Urine 19 /hpf (0-5); Specific Gravity,Urine 1.031 (1.001-1.035); Squamous Epithelial Cell,Urine 6 /hpf (0-4); Urobilinogen,Urine <2.0 mg/dL (<2.0); WBC,Urine 24 /hpf (0-5)
[2022-11-28 13:18] LABS: C. trachomatis,PCR Negative (Negative)
[2022-11-28 13:33] LABS: N. gonorrhoeae,PCR Negative (Negative)
== END 2022-11-24 22:14 | disposition home or self-care (01) ==
LOC: EC 20:35
DX: B37.9 Candidiasis, unspecified (principal); F12.90 Cannabis use, unspecified, uncomplicated; F17.200 Nicotine dependence, unspecified, uncomplicated; Z88.1 Allergy status to other antibiotic agents
CPT/HCPCS: 81001; 81025; 87086; 87491; 87591; 87808; 99283

== ENCOUNTER 2023-11-04 22:58 | Emergency (ER) | payer OTHER ==
--- NOTE | 2023-11-04 23:28 | ED ---
ENT HPI - General Source: patient, RN notes reviewed Mode of arrival: ambulatory Limitations: no limitations <Micaela Ewing - Last Filed: 11/04/23 23:27> <Franco Frank - Last Filed: 11/05/23 02:52> - General Chief complaint: ENT Stated complaint: L Ear Pain Time Seen by Provider: 11/04/23 23:12 - History of Present Illness Initial comments: Quick Note-this is a 32-year-old female presents emergency department chief complaint of left ear pain. States this pain started about 4 hours ago and radiates into her jaw. She also endorses mild cough and rhinorrhea. She denies fevers, body aches, chills, sore throat. (Micaela Ewing) 32-year-old female presenting with chief complaint of left ear pain. Pain started 4 hours ago. Pain radiates into her jaw. She also admits to cough and congestion. No bleeding or discharge from the ear. No injury or trauma. No fever, chills, sore throat, nausea, vomiting. (Franco Frank) - Related Data Home Medications Medication Instructions Recorded Confirmed [id number] Acid 1 cap PO DAILY 03/03/18 08/10/21 [-U Capsule (formulary)] Acyclovir [Zovirax] 400 mg PO TID 08/10/21 08/10/21 Previous Rx's Medication Instructions Recorded Ibuprofen [Motrin] 600 mg PO Q6H PRN #30 tab 08/11/21 oxyCODONE HCL [OxyIR] 5 mg PO Q4HR PRN #18 tab 08/11/21 Amoxicillin/Potassium Clav 1 tab PO Q12HR #20 tab 10/17/21 [Augmentin 875-125 Tablet] Amoxic-Pot Clav 875-125Mg 1 tab PO Q12HR 10 Days #20 tab 04/15/22 [Augmentin 875-125] Fluconazole [Diflucan] 150 mg PO ONCE #1 tab 11/24/22 Amoxicillin 875 mg PO Q12HR 5 Days #10 tablet 11/05/23 Allergies Allergy/AdvReac Type Severity Reaction Status Date / Time cephalexin [From Keflex] Allergy Swelling Verified 11/04/23 23:07 Review of Systems ROS Other: All systems not noted in ROS Statement are negative. <Micaela Ewing - Last Filed: 11/04/23 23:27> ROS Other: All systems not noted in ROS Statement are negative. <Franco Frank - Last Filed: 11/05/23 02:52> ROS Statement: Those systems with pertinent positive or pertinent negative responses have been documented in the HPI. Past Medical History Past Medical History: No Reported History Additional Past Medical History / Comment(s): CHLAMYDIA History of Any Multi-Drug Resistant Organisms: None Reported Past Surgical History: Section, Orthopedic Surgery Additional Past Surgical History / Comment(s): D&C x 2, finger Past Anesthesia/Blood Transfusion Reactions: No Reported Reaction Past Psychological History: No Psychological Hx Reported Smoking Status: Vaper Past Alcohol Use History: Occasional Past Drug Use History: Marijuana - Past Family History Mother Family Medical History: Hypertension <Micaela Ewing - Last Filed: 11/04/23 23:27> General Exam Limitations: no limitations <Micaela Ewing - Last Filed: 11/04/23 23:27> Limitations: no limitations General appearance: alert, in no apparent distress Head exam: Present: atraumatic, normocephalic Eye exam: Present: normal appearance Expanded Ear exam: Present: normal external inspection TM/Canal exam: Erythema: Left TM Mouth exam: Present: normal external inspection Neck exam: Present: normal inspection. Absent: meningismus Respiratory exam: Absent: respiratory distress Cardiovascular Exam: Present: regular rate Neurological exam: Present: alert, oriented X3 Psychiatric exam: Present: normal affect, normal mood Skin exam: Present: normal color <Franco Frank - Last Filed: 11/05/23 02:52> - General Exam Comments Initial Comments: Visual Physical Exam Vital signs reviewed General: Well-appearing, nontoxic, no acute distress. Head: Normocephalic, atraumatic Eyes: PERRLA, EOMI ENT: Airway patent Chest: Nonlabored breathing Skin: No visual rash, normal skin tone Neuro: Alert and oriented 3 Musculoskeletal: No gross abnormalities (StielerNithinMicaela) Course Vital Signs 11/04/23 11/05/23 23:06 01:14 Temperature 98.7 F 98.5 F Pulse Rate 85 80 Respiratory 18 18 Rate Blood Pressure 114/73 115/73 O2 Sat by Pulse 100 100 Oximetry Medical Decision Making <Micaela Ewing - Last Filed: 11/04/23 23:27> <Franco Frank - Last Filed: 11/05/23 02:52> - Medical Decision Making I completed the quick note portion of this chart signed Micaela Ewing PA-C (Micaela Ewing) Was pt. sent in by a medical professional or institution (SUSHIL Mckeon, INDUSTRIAL TRUCK DRIVER, urgent care, hospital, or long-term...) When possible be specific @ -No Did you speak to anyone other than the patient for history (EMS, parent, family, police, friend...)? What history was obtained from this source @ -No Did you review nursing and triage notes (agree or disagree)? Why? @ -I reviewed and agree with nursing and triage notes Were old charts reviewed (outside hosp., previous admission, EMS record, old EKG, old radiological studies, urgent care reports/EKG's, long-term records)? Report findings @ -No old charts were reviewed Differential Diagnosis (chest pain, altered mental status, abdominal pain women, abdominal pain men, vaginal bleeding, weakness, fever, dyspnea, syncope, headache, dizziness, GI bleed, back pain, seizure, CVA, palpatations, mental health, musculoskeletal)? @ -Differential includes otitis media, otitis externa, mastoiditis, this is not an all-inclusive list EKG interpreted by me (3pts min.). @ -As above X-rays interpreted by me (1pt min.). @ -None done CT interpreted by me (1pt min.). @ -None done U/S interpreted by me (1pt. min.). @ -None done What testing was considered but not performed or refused? (CT, X-rays, U/S, labs)? Why? @ -None What meds were considered but not given or refused? Why? @ -None Did you discuss the management of the patient with other professionals (professionals i.e. SUSHIL Mckeon, INDUSTRIAL TRUCK DRIVER, lab, RT, psych nurse, adoption social worker, product management internship, teacher, light armored vehicle officer, vocational case manager)? Give summary @ -No Was smoking cessation discussed for >3mins.? @ -No Was critical care preformed (if so, how long)? @ -No Were there social determinants of health that impacted care today? How? (Homelessness, low income, unemployed, alcoholism, drug addiction, transportation, low edu. Level, literacy, decrease access to med. care, skilled nursing, rehab)? @ -No Was there de-escalation of care discussed even if they declined (Discuss DNR or withdrawal of care, Hospice)? DNR status @ -No What co-morbidities impacted this encounter? (DM, HTN, Smoking, COPD, CAD, Cancer, CVA, ARF, Chemo, Hep., AIDS, mental health diagnosis, sleep apnea, morbid obesity)? @ -None Was patient admitted / discharged? Hospital course, mention meds given and route, prescriptions, significant lab abnormalities, going to OR and other pertinent info. @ -32-year-old female presenting with chief complaint of left ear pain that started 4 hours ago. She is negative for influenza, RSV, COVID. She will be treated for otitis media with amoxicillin. Discharged home. Follow-up with PCP. Report back to ER with any new or worsening symptoms. Discussed return parameters and answered all questions. Patient conveyed verbal understanding and agreed to the plan. I discussed this case in detail with my attending Dr. Sweet Undiagnosed new problem with uncertain prognosis? @ -No Drug Therapy requiring intensive monitoring for toxicity (Heparin, Nitro, Insulin, Cardizem)? @ -No Were any procedures done? @ -No Diagnosis/symptom? @ -Otitis media Acute, or Chronic, or Acute on Chronic? @ -Acute Uncomplicated (without systemic symptoms) or Complicated (systemic symptoms)? @ -Uncomplicated Side effects of treatment? @ -No Exacerbation, Progression, or Severe Exacerbation? @ -No Poses a threat to life or bodily function? How? (Chest pain, [place], [place], pneumonia, PE, COPD, DKA, ARF, appy, cholecystitis, CVA, Diverticulitis, Homicidal, Suicidal, threat to staff... and all critical care pts) @ -No (Franco Frank) - Lab Data Lab Results 11/04/23 Range/Units 11:40 Influenza Type A (PCR) Not Detected (Not Detectd) Influenza Type B (PCR) Not Detected (Not Detectd) RSV (PCR) Not Detected (Not Detectd) SARS-CoV-2 (PCR) Not Detected (Not Detectd) Disposition <Micaela Ewing - Last Filed: 11/04/23 23:27> Is patient prescribed a controlled substance at d/c from ED?: No Time of Disposition: 00:43 <Franco Frank - Last Filed: 11/05/23 02:52> Clinical Impression: Otitis media Disposition: HOME SELF-CARE Condition: Good Instructions (If sedation given, give patient instructions): Ear Infection (ED) Additional Instructions: Follow-up with PCP. Report back to ER with any new or worsening symptoms. Prescriptions: Amoxicillin 875 mg PO Q12HR 5 Days #10 tablet Referrals: Cassy John MD [Primary Care Provider] - 1-2 days
[2023-11-04 23:47] VITALS: RESP 18
[2023-11-05] MEDS: AMOXICILLIN 875 MG TAB PO STA (01:07)
[2023-11-05 01:45] VITALS: BP 115/73; PULSE 80; TEMP 98.5
== END 2023-11-05 01:24 | disposition home or self-care (01) ==
LOC: EC 22:58
DX: H66.92 Otitis media, unspecified, left ear (principal); F17.290 Nicotine dependence, other tobacco product, uncomplicated; Z88.1 Allergy status to other antibiotic agents
CPT/HCPCS: 87636; 99283

== ENCOUNTER 2024-03-21 04:00 | Emergency (ER) | payer OTHER ==
[2024-03-21 04:05] VITALS: TEMP 97.7
[2024-03-21] MEDS: SODIUM CHLORIDE 0.9% 1,000 ML IV ONE (04:38)
--- NOTE | 2024-03-21 04:54 | ED ---
Back Pain HPI - General Chief Complaint: Abdominal Pain Stated Complaint: Abdominal Pain, Low Back Pain Time Seen by Provider: 03/21/24 04:03 Source: patient, RN notes reviewed, old records reviewed Limitations: no limitations - History of Present Illness Initial Comments: This is a 33-year-old female to the ER for evaluation of back pain body aches pains back pain leg pain. Patient is a G1, P0. Thinks she may be . No other complaint history of fever nausea vomiting diarrhea no dysuria no vaginal bleeding no abdominal pain MD Complaint: back pain -: days(s) Similar Symptoms Previously: Yes Place: home Radiation: none Severity: mild Severity scale (1-10): 1 Quality: aching Consistency: intermittent Improves With: none Worsens With: none Associated Symptoms: denies other symptoms - Related Data Home Medications Medication Instructions Recorded Confirmed Gwh-Wnoh-Sdbml Acid 1 cap PO DAILY 03/03/18 08/10/21 [-U Capsule (formulary)] Acyclovir [Zovirax] 400 mg PO TID 08/10/21 08/10/21 Previous Rx's Medication Instructions Recorded Ibuprofen [Motrin] 600 mg PO Q6H PRN #30 tab 08/11/21 oxyCODONE HCL [OxyIR] 5 mg PO Q4HR PRN #18 tab 08/11/21 Amoxicillin/Potassium Clav 1 tab PO Q12HR #20 tab 10/17/21 [Augmentin 875-125 Tablet] Amoxic-Pot Clav 875-125Mg 1 tab PO Q12HR 10 Days #20 tab 04/15/22 [Augmentin 875-125] Fluconazole [Diflucan] 150 mg PO ONCE #1 tab 11/24/22 Amoxicillin 875 mg PO Q12HR 5 Days #10 tablet 11/05/23 Allergies Allergy/AdvReac Type Severity Reaction Status Date / Time cephalexin [From Keflex] Allergy Swelling Verified 03/21/24 04:05 Review of Systems ROS Statement: Those systems with pertinent positive or pertinent negative responses have been documented in the HPI. ROS Other: All systems not noted in ROS Statement are negative. Past Medical History Past Medical History: No Reported History Additional Past Medical History / Comment(s): CHLAMYDIA History of Any Multi-Drug Resistant Organisms: None Reported Past Surgical History: Section, Orthopedic Surgery Additional Past Surgical History / Comment(s): D&C x 2, finger Past Anesthesia/Blood Transfusion Reactions: No Reported Reaction Past Psychological History: No Psychological Hx Reported Smoking Status: Vaper Past Alcohol Use History: Occasional Past Drug Use History: Marijuana - Past Family History Mother Family Medical History: Hypertension General Exam General appearance: alert, in no apparent distress Head exam: Present: atraumatic, normocephalic, normal inspection Eye exam: Present: normal appearance, PERRL, EOMI. Absent: scleral icterus, conjunctival injection, periorbital swelling ENT exam: Present: normal exam, mucous membranes moist Neck exam: Present: normal inspection. Absent: tenderness, meningismus, lymphadenopathy Respiratory exam: Present: normal lung sounds bilaterally. Absent: respiratory distress, wheezes, rales, rhonchi, stridor Cardiovascular Exam: Present: regular rate, normal rhythm, normal heart sounds. Absent: systolic murmur, diastolic murmur, rubs, gallop, clicks GI/Abdominal exam: Present: soft, normal bowel sounds. Absent: distended, tenderness, guarding, rebound, rigid Extremities exam: Present: normal inspection, full ROM, normal capillary refill. Absent: tenderness, pedal edema, joint swelling, calf tenderness Back exam: Present: normal inspection Neurological exam: Present: alert, oriented X3, CN II-XII intact Psychiatric exam: Present: normal affect, normal mood Skin exam: Present: warm, dry, intact, normal color. Absent: rash Course Vital Signs 03/21/24 03/21/24 04:02 05:33 Temperature 97.7 F Pulse Rate 71 64 Respiratory 18 16 Rate Blood Pressure 96/41 97/55 O2 Sat by Pulse 100 95 Oximetry - Reevaluation(s) Reevaluation #1: 03/21/24 05:14 Medical records reviewed Reevaluation #2: 03/21/24 05:14 Patient symptoms unchanged Reevaluation #3: 03/21/24 05:14 Patient informed of results questions answered Reevaluation #4: Was pt. sent in by a medical professional or institution (, PA, DIRECTOR OF KIDS, urgent care, hospital, or detention...) When possible be specific @ -no Did you speak to anyone other than the patient for history (EMS, parent, family, police, friend...)? What history was obtained from this source @ -no Did you review nursing and triage notes (agree or disagree)? Why? @ -agree Are old charts reviewed (outside hosp., previous admission, EMS record, old EKG, old radiological studies, urgent care reports/EKG's, detention records)? Report findings @ -yes Differential Diagnosis (chest pain, altered mental status, abdominal pain women, abdominal pain men, vaginal bleeding, weakness, fever, dyspnea, syncope, headache, dizziness, GI bleed, back pain, seizure, CVA, palpatations, mental health, musculoskeletal)? @ -prior EKG interpreted by me (3pts min.). @ -yes X-rays interpreted by me (1pt min.). @ -yes negative for acute disease CT interpreted by me (1pt min.). @ -no U/S interpreted by me (1pt. min.). @ -no What testing was considered but not performed or refused? (CT, X-rays, U/S, labs)? Why? @ -none What meds were considered but not given or refused? Why? @ -none Did you discuss the management of the patient with other professionals (professionals i.e. , PA, DIRECTOR OF KIDS, lab, RT, psych nurse, social insurance adviser, tone regulator, teacher, medical information officer, rn case management)? Give summary @ -no Was smoking cessation discussed for >3mins.? @ -no Was critical care preformed (if so, how long)? @ -no Were there social determinants of health that impacted care today? How? (Homelessness, low income, unemployed, alcoholism, drug addiction, transportation, low edu. Level, literacy, decrease access to med. care, [facility], rehab)? @ -none Was there de-escalation of care discussed even if they declined (Discuss DNR or withdrawal of care, Hospice)? DNR status @ -no What co-morbidities impacted this encounter? (DM, HTN, Smoking, COPD, CAD, Cancer, CVA, ARF, Chemo, Hep., AIDS, mental health diagnosis, sleep apnea, morbid obesity)? @ -none Was patient admitted / discharged? Hospital course, mention meds given and route, prescriptions, significant lab abnormalities, going to OR and other pertinent info. @ - 33 female with nonspecific a back pain leg pain muscle aches. Patient has positive and can be discharged home Undiagnosed new problem with uncertain prognosis? @ -no Drug Therapy requiring intensive monitoring for toxicity (Heparin, Nitro, Insulin, Cardizem)? @ -no Were any procedures done? @ -no Diagnosis/symptom? @ - with muscle aches Acute, or Chronic, or Acute on Chronic? @ -Acute Uncomplicated (without systemic symptoms) or Complicated (systemic symptoms)? @ -Complicated Side effects of treatment? @ -no Exacerbation, Progression, or Severe Exacerbation? @ -exacerbation Poses a threat to life or bodily function? How? (Chest pain, [place], [place], pneumonia, PE, COPD, DKA, ARF, appy, cholecystitis, CVA, Diverticulitis, Homicidal, Suicidal, threat to staff... and all critical care pts) @ -yes Medical Decision Making - Medical Decision Making 33 female with nonspecific a back pain leg pain muscle aches. Patient has positive and can be discharged home - Lab Data Lab Results 03/21/24 03/21/24 03/21/24 Range/Units 04:20 04:20 04:34 Urine Color Light Yellow Urine Appearance Cloudy H (Clear) Urine pH 6.0 (5.0-8.0) Ur Specific [place] 1.028 (1.001-1.035) Urine Protein Negative (Negative) Urine Glucose (UA) Negative (Negative) Urine Ketones Negative (Negative) Urine Blood Negative (Negative) Urine Nitrite Negative (Negative) Urine Bilirubin Negative (Negative) Urine Urobilinogen <2.0 (<2.0) mg/dL Ur Leukocyte Esterase Negative (Negative) Urine RBC 1 (0-5) /hpf Urine WBC 2 (0-5) /hpf Ur Squamous Epith Cells 21 H (0-4) /hpf Hyaline Casts 3 H (0-2) /lpf Urine Mucus Occasional H (None) /hpf Urine HCG, Qual Detected (Not Detectd) Influenza Type A (PCR) Not Detected (Not Detectd) Influenza Type B (PCR) Not Detected (Not Detectd) RSV (PCR) Not Detected (Not Detectd) SARS-CoV-2 (PCR) Not Detected (Not Detectd) Disposition Clinical Impression: Back pain affecting Disposition: HOME SELF-CARE Condition: Good Instructions (If sedation given, give patient instructions): (ED), Abdominal Pain in (ED) Is patient prescribed a controlled substance at d/c from ED?: No Referrals: Cassy John MD [Primary Care Provider] - 1-2 days Time of Disposition: 05:00
[2024-03-21] MEDS: IBUPROFEN 800 MG TAB PO STA (04:58)
[2024-03-21] MEDS: ACETAMINOPHEN TAB 500 MG TAB PO STA (04:59)
[2024-03-21 05:02] LABS: Appearance,Urine Cloudy (Clear); Bilirubin,Urine Negative (Negative); Blood,Urine Negative (Negative); Color,Urine Light Yellow; Glucose,Urine (UA) Negative (Negative); Hyaline Casts,Urine 3 /lpf (0-2); Ketones,Urine Negative (Negative); Leukocyte Esterase,Urine Negative (Negative); Mucus,Urine Occasional /hpf; Nitrite,Urine Negative (Negative); Protein,Urine Negative (Negative); RBC,Urine 1 /hpf (0-5); Specific Gravity,Urine 1.028 (1.001-1.035); Squamous Epithelial Cell,Urine 21 /hpf (0-4); Urobilinogen,Urine <2.0 mg/dL (<2.0); WBC,Urine 2 /hpf (0-5)
[2024-03-21 05:34] VITALS: BP 97/55; PULSE 64; RESP 16
== END 2024-03-21 05:34 | disposition home or self-care (01) ==
LOC: EC 04:00
CPT/HCPCS: 81001; 81025; 87636; 99284

== ENCOUNTER 2024-07-28 02:51 | Emergency (ER) | payer OTHER ==
[2024-07-28 03:05] VITALS: BP 107/68; PULSE 84; RESP 16; TEMP 97.9
[2024-07-28 03:55] LABS: Influenza A Not Detected (Not Detectd); Influenza B Not Detected (Not Detectd); RSV Not Detected (Not Detectd)
--- NOTE | 2024-07-28 04:06 | ED ---
URI HPI - General Chief Complaint: Upper Respiratory Infection Stated Complaint: body pain throat pain Time Seen by Provider: 07/28/24 03:19 Source: patient, RN notes reviewed, old records reviewed Mode of arrival: ambulatory Limitations: no limitations - History of Present Illness Initial Comments: This is a 33-year-old female to the ER for evaluation. Patient has positive sick contacts including children for influenza. Patient self has no medical history takes no medications, non-smoker. Patient presents for fever cough congestion x 3 days symptoms worsening body aches pains, no travel history. MD Complaint: fever, cough, nasal congestion -: days(s) (3) Severity: mild Severity scale (1-10): 3 Consistency: intermittent Improves With: nothing Worsens With: nothing Context: sick contacts Associated Symptoms: fever, myalgias, nasal congestion, cough Treatments Prior to Arrival: Acetaminophen, Ibuprofen - Related Data Home Medications Medication Instructions Recorded Confirmed Exa-Lylm-Jkmss Acid 1 cap PO DAILY 03/03/18 08/10/21 [-U Capsule (formulary)] Acyclovir [Zovirax] 400 mg PO TID 08/10/21 08/10/21 Previous Rx's Medication Instructions Recorded Ibuprofen [Motrin] 600 mg PO Q6H PRN #30 tab 08/11/21 oxyCODONE HCL [OxyIR] 5 mg PO Q4HR PRN #18 tab 08/11/21 Amoxicillin/Potassium Clav 1 tab PO Q12HR #20 tab 10/17/21 [Augmentin 875-125 Tablet] Amoxic-Pot Clav 875-125Mg 1 tab PO Q12HR 10 Days #20 tab 04/15/22 [Augmentin 875-125] Fluconazole [Diflucan] 150 mg PO ONCE #1 tab 11/24/22 Amoxicillin 875 mg PO Q12HR 5 Days #10 tablet 11/05/23 Allergies Allergy/AdvReac Type Severity Reaction Status Date / Time cephalexin [From Keflex] Allergy Swelling Verified 07/28/24 03:05 Review of Systems ROS Statement: Those systems with pertinent positive or pertinent negative responses have been documented in the HPI. ROS Other: All systems not noted in ROS Statement are negative. Past Medical History Past Medical History: No Reported History Additional Past Medical History / Comment(s): CHLAMYDIA History of Any Multi-Drug Resistant Organisms: None Reported Past Surgical History: Section, Orthopedic Surgery Additional Past Surgical History / Comment(s): D&C x 2, finger Past Anesthesia/Blood Transfusion Reactions: No Reported Reaction Past Psychological History: No Psychological Hx Reported Smoking Status: Vaper Past Alcohol Use History: Occasional Past Drug Use History: Marijuana - Past Family History Mother Family Medical History: Hypertension General Exam Limitations: no limitations General appearance: alert, in no apparent distress Head exam: Present: atraumatic, normocephalic, normal inspection Eye exam: Present: normal appearance, PERRL, EOMI. Absent: scleral icterus, conjunctival injection, periorbital swelling ENT exam: Present: normal exam, mucous membranes moist Neck exam: Present: normal inspection. Absent: tenderness, meningismus, lymphadenopathy Respiratory exam: Present: normal lung sounds bilaterally. Absent: respiratory distress, wheezes, rales, rhonchi, stridor Cardiovascular Exam: Present: regular rate, normal rhythm, normal heart sounds. Absent: systolic murmur, diastolic murmur, rubs, gallop, clicks GI/Abdominal exam: Present: soft, normal bowel sounds. Absent: distended, tenderness, guarding, rebound, rigid Extremities exam: Present: normal inspection, full ROM, normal capillary refill. Absent: tenderness, pedal edema, joint swelling, calf tenderness Back exam: Present: normal inspection Neurological exam: Present: alert, oriented X3, CN II-XII intact Psychiatric exam: Present: normal affect, normal mood Skin exam: Present: warm, dry, intact, normal color. Absent: rash Course Vital Signs 07/28/24 03:03 Temperature 97.9 F Pulse Rate 84 Respiratory 16 Rate Blood Pressure 107/68 O2 Sat by Pulse 97 Oximetry - Reevaluation(s) Reevaluation #1: Medical records reviewed Reevaluation #2: Patient symptoms improved here in the ER Reevaluation #3: Patient informed of results and questions answered Reevaluation #4: Was pt. sent in by a medical professional or institution (, PA, WARP PICKER, urgent care, hospital, or [facility]...) When possible be specific @ -no Did you speak to anyone other than the patient for history (EMS, parent, family, police, friend...)? What history was obtained from this source @ -no Did you review nursing and triage notes (agree or disagree)? Why? @ -agree Are old charts reviewed (outside hosp., previous admission, EMS record, old EKG, old radiological studies, urgent care reports/EKG's, [facility] records)? Report findings @ -yes Differential Diagnosis (chest pain, altered mental status, abdominal pain women, abdominal pain men, vaginal bleeding, weakness, fever, dyspnea, syncope, headache, dizziness, GI bleed, back pain, seizure, CVA, palpatations, mental health, musculoskeletal)? @ -prior EKG interpreted by me (3pts min.). @ -no X-rays interpreted by me (1pt min.). @ -yes negative for acute disease CT interpreted by me (1pt min.). @ -no U/S interpreted by me (1pt. min.). @ -no What testing was considered but not performed or refused? (CT, X-rays, U/S, labs)? Why? @ -none What meds were considered but not given or refused? Why? @ -none Did you discuss the management of the patient with other professionals (professionals i.e. , PA, WARP PICKER, lab, RT, psych nurse, social studies teacher, field kiln burner, teacher, air defence officer, case manager specialist)? Give summary @ -no Was smoking cessation discussed for >3mins.? @ -no Was critical care preformed (if so, how long)? @ -no Were there social determinants of health that impacted care today? How? (Homelessness, low income, unemployed, alcoholism, drug addiction, transportation, low edu. Level, literacy, decrease access to med. care, alf, rehab)? @ -none Was there de-escalation of care discussed even if they declined (Discuss DNR or withdrawal of care, Hospice)? DNR status @ -no What co-morbidities impacted this encounter? (DM, HTN, Smoking, COPD, CAD, Cancer, CVA, ARF, Chemo, Hep., AIDS, mental health diagnosis, sleep apnea, morbid obesity)? @ -none Was patient admitted / discharged? Hospital course, mention meds given and route, prescriptions, significant lab abnormalities, going to OR and other pertinent info. @ - 33 female to ER with influenza, children have influenza here in the ER. Patient does have signs and symptoms influenza although testing is negative chest x-ray is negative patient will continue Motrin and Tylenol for symptoms and can be discharged home Discharged Undiagnosed new problem with uncertain prognosis? @ -no Drug Therapy requiring intensive monitoring for toxicity (Heparin, Nitro, Insulin, Cardizem)? @ -no Were any procedures done? @ -no Diagnosis/symptom? @ -Influenz, Viral illness Acute, or Chronic, or Acute on Chronic? @ -Acute Uncomplicated (without systemic symptoms) or Complicated (systemic symptoms)? @ -Complicated Side effects of treatment? @ -no Exacerbation, Progression, or Severe Exacerbation? @ -exacerbation Poses a threat to life or bodily function? How? (Chest pain, [place], [place], pneumonia, PE, COPD, DKA, ARF, appy, cholecystitis, CVA, Diverticulitis, Homicidal, Suicidal, threat to staff... and all critical care pts) @ -no Reevaluation #5: Differential Dyspnea: Coronary syndrome, arrhythmia, tamponade, asthma, COPD, pulmonary embolism, pneumonia, pneumothorax, pulmonary effusion, anaphylaxis, diabetic ketoacidosis, flailed chest, pulmonary contusion, diaphragmatic rupture, anemia, neuromuscular, this is not meant to be an all-inclusive list. Medical Decision Making - Medical Decision Making 33 female to ER with influenza, children have influenza here in the ER. Patient does have signs and symptoms influenza although testing is negative chest x-ray is negative patient will continue Motrin and Tylenol for symptoms and can be discharged home - Lab Data Lab Results 07/28/24 Range/Units 03:06 Influenza Type A (PCR) Not Detected (Not Detectd) Influenza Type B (PCR) Not Detected (Not Detectd) RSV (PCR) Not Detected (Not Detectd) SARS-CoV-2 (PCR) Not Detected (Not Detectd) - Radiology Data Radiology results: report reviewed (Chest x-ray is negative for acute disease), image reviewed Disposition Clinical Impression: Influenza Disposition: HOME SELF-CARE Condition: Good Instructions (If sedation given, give patient instructions): Influenza (ED) Is patient prescribed a controlled substance at d/c from ED?: No Referrals: Cassy John MD [Primary Care Provider] - 1-2 days
--- NOTE | 2024-07-28 04:15 | XR ---
EXAM: XR Chest, 2 Views CLINICAL HISTORY: ITS.REASON XR Reason: respiratory symptoms TECHNIQUE: Frontal and lateral views of the chest. COMPARISON: 06/19/22 FINDINGS: Lungs: Unremarkable. No consolidation. Pleural space: Unremarkable. Mediastinum: Unremarkable. Normal mediastinal contour. Bones/joints: No acute findings. IMPRESSION: No acute findings.
== END 2024-07-28 04:16 | disposition home or self-care (01) ==
LOC: EC 02:51
DX: J11.1 Influenza due to unidentified influenza virus with other respiratory manifestations (principal); F17.290 Nicotine dependence, other tobacco product, uncomplicated; Z88.1 Allergy status to other antibiotic agents
CPT/HCPCS: 71046; 87636; 99283